=== PATIENT | female | born 1995 | race Hispanic/Latino ===

== ENCOUNTER 2024-06-04 12:46 | Emergency (ER) | payer SELFPAY ==
--- OUTSIDE RECORDS SUMMARY | 2024-06-04 12:50 | XMS REPORT | Continuity of Care Document ---
Author Name Unknown Address [address] [place] [place] [address] [facility] thconnect Address [address] [place] [place] [address] Care Team Providers Care Big Data Admin Name Role Phone Marcial Tobar Primary Care Physician [phone] MILES ARROYO Attending Clinician Unavailable Miles Arroyo DO Attending Clinician [phone] Mason Mina Attending Clinician UnavailEverardo Warner Attending Clinician UnavailPedro Jordan Attending Clinician UnavailRyan Palmer Attending Clinician UnavailShakila Guerra Admitting Clinician Unavailable Roldan Dan Admitting Clinician Unavailable Physician, No Primary or Family Admitting Clinic josephine Unavailable Payers Payer Name Policy Type Policy Number Effective Date Expirati on Date Source Allergies, Adverse Reactions, Alerts Allergy Name Allergy Type Status Severity Reaction(s) Onset Date Inactive Date Treating Clinician Comments Source No Known Allergie s DA Active U 11-26 00:00: 00 [facility] No Known Allergie s DA Active U 11-26 00:00: 00 [facility] NO KNOWN ALLERGIE S Drug Class Active [facility] Social History Social Habit Start Date Stop Date Quantity Comments Source Sexual orientation [facility] Sex Assigned At 1995 00:00:00 1995 00:00:00 [facility] Smoking Status Start Date Stop Date Source Tobacco smoking consumption unknown [facility] Medications Ordered Medication Name Filled Medication Name Start Date Stop Date Current Medication? Ordering Clinician Indication Dosage Frequency Signature (SIG) Comments Components Source metoclopram ha HCl (REGLAN) 10 mg tablet 10-09 00:00: 00 Yes [id number] 10mg Take 1 tablet by mouth every 6 (six) hours as needed (migraine) . [facility] diphenhydrA MINE (BENADRYL ALLERGY) 25 mg tablet 10-09 00:00: 00 Yes [id number] 25mg Take 1 tablet by mouth every 6 (six) hours as needed for Allergies (with reglan for migraine). [facility] naproxen sodium (ANAPROX DS) 550 mg tablet 10-09 00:00: 00 Yes [id number] 550mg Take 1 tablet by mouth in the morning and 1 tablet in the evening. Take with meals. [facility] Vital Signs Vital Name Observation Time Observation Value Comments S elvis Systolic blood pressure 2023-10-10 13:04:00 104 mm[Hg] [facility] Diastolic blood pressure 2023-10-10 13:04:00 77 mm[Hg] [facility] Heart rate 2023-10-10 13:04:00 72 /min [facility] Body temperature 2023-10-10 13:04:00 36.72 [place] [facility] Respiratory rate 2023-10-10 13:04:00 16 /min [facility] Body height 2023-10-10 13:04:00 157.5 cm [facility] Body weight 2023-10-10 13:04:00 47.174 kg [facility] BMI 2023-10-10 13:04:00 19.02 kg/m2 [facility] Oxygen saturation in Arterial blood by Pulse oximetry 2023-10-10 13:04:00 100 /min [facility] BP Systolic 2024-06-03 11:10:00 109 mm[Hg] [facility] BP Diastolic 2024-06-03 11:10:00 60 mm[Hg] [place] phen [facility] Kennedy Weight Measured 2024-06-03 11:10:00 124.20 pounds Paul Benavides Height Measured 2024-06-03 11:10:00 62.00 inches Paul Jesus Benavides Body Temperature 2024-06-03 11:10:00 98.20 degrees Paul Benavides Heart Rate 2024-06-03 11:10:00 69.00 /min Bria en F Kennedy Respiratory Rate 2024-06-03 11:10:00 16.00 /min [facility] Respiratory Rate 2023-11-30 08:59:00 18.00 /min [facility] BP Systolic 2023-11-30 08:59:00 109 mm[Hg] Step [facility] BP Diastolic 2023-11-30 08:59:00 75 mm[Hg] [place] phen [facility] Weight Measured 2023-11-30 08:59:00 113.40 pounds Paul Benavides Height Measured 2023-11-30 08:59:00 62.00 inches Paul Benavides Body Temperature 2023-11-30 08:59:00 98.10 degrees Paul Jesus Benavides Heart Rate 2023-11-30 08:59:00 64.00 /min Bria en F Kennedy Encounters Start Date/Time End Date/Time Encounter Type Admission Type Attending Rust Care Department Encounter ID Source 2021-10-02 11:26:58 Outpatient [facility] [id number] [facility] 2024-06-03 11:03:07 2024-06-03 11:03:07 Outpatient [facility] [id number] [id number] Paul Benavides 2024-06-03 00:00:00 2024-06-03 00:00:00 Outpatient Visit S[facility] [id number] Paul Benavides 2023-11-30 08:46:00 2023-11-30 08:46:00 Outpatient SFA SFA [id number] Paul Benavides 2023-11-30 00:00:00 2023-11-30 00:00:00 Outpatient Visit SFA [id number] Paul Benavides 2023-10-10 08:05:00 2023-10-10 09:21:00 Emergency X MILES ARROYO [facility] ERT [id number] [facility] 2023-10-10 08:05:00 2023-10-10 09:21:00 Emergency Miles Arroyo [facility] [id number] [facility] 2023-02-12 14:53:00 2023-02-12 18:49:00 Emergency EM Mason Mina [facility] [id number] [facility] 2023-02-04 16:41:00 2023-02-04 18:46:00 Emergency EM Sam Everardo [facility] [id number] [facility] 2021-06-24 13:05:00 2021-06-24 18:51:00 Emergency [facility] [id number] [facility] 2021-06-24 13:05:00 2021-06-24 18:51:00 Emergency [facility] [id number] [facility] 2021-03-11 07:27:00 2021-03-11 10:45:00 Emergency EM Ryan Tidwell [facility] [id number] [facility] 2021-01-03 14:55:00 2021-01-03 20:54:00 Emergency EM Sam ClydePolo [facility] [id number] [facility] 2020-10-21 07:02:00 2020-10-21 07:02:00 Outpatient [facility] [id number] [facility] Medical Results Test Description Test Time Test Comments Results Result Co mments Source NT PRO-BRAIN NATRIURETIC [id number] 16:48:00* Test Item Value Reference Range Interpretation Comme nts NT PRO-BRAIN NATRIURETIC PEPTI (test code = PROBNP) 51.4 pg/mL See_Comment N INTERPRETATION O F RESULTS Results of this test should be used in accordance with the appropriate clinical guidelines and in conjunction with clinical presentation and other diagnostic tests. Clinical guidelines recommend using natriuretic peptides in both Emergency Department (ED) and outpatient settings for diagnosis or exclusion of heart failure (HF). The performance of the VITROS NT-proBNP II test was evaluated separately in each of these settings using published age-independent and age-dependent cutoffs. EMERGENCY DEPARTMENT SETTINGS/INPATIENT: For patients presenting to the ED settings with acute or worsening dyspnea and clinical suspicion of HF, the VITROS NT-proBNP II test results should be interpreted as indicatedin the table below. ========Results(pg/mL) Age Group *Interpretation <300 All *Negative: Heart Failure Unlikely >=450 22-<50 * POSITIVE: Heart Failure >=900 50-<75 Likely >=1800 >=75 --------OUTPATIENT SETTINGS: In the outpatient settings, the optimal use of natriuretic peptides is to exclude HF. Therefore, a lower rule-out cutoff which increases sensitivity and negative predictive value is needed, as patients can present with limited, less acute HF symptoms. For ambulatory patients presenting to outpatient facilitieswith clinical suspicion of HF not previously diagnosed andat least one sign, symptom or risk factor for HF, the VITROSNT-proBNP II test results should be interpreted as indicatedin the table below: Results(pg/mL) Age Group *Interpretation <125 ALL * Negative - Heart Failure Unlikely >=125 ALL * Consider Heart Failure as well as other causes of NT-ProBNP elvation. The following interferents causes a bias at concentrationslisted in procedure. -Cefoxitin sodium -Sodium Azide [Automated message] The system which generated this result transmitted reference range: <20.0-95.3. The reference range was not used to interpret this result as normal/abnormal. [id number] 16:48:00* Test Item Value Reference Range Interpretation Comme nts TROPONIN-I (test code = TROPI) < 0.012 ng/mL 0.012-0.033 L Please be advised of the updated reference ranges for the new Chemistry instrumentation. VITROS TROPONIN I CRITERIANORMAL PATIENT W/O CIRCULATING TNI: 0.012-0.033 ng/mLAMI DIAGNOSTIC CUTOFF: >/= 0.120 ng/mL~~~~~~~~~~~~~~~~~~~~~~ ~~~~~~~~~~~~~~~~~~~~~~~~~~~ ~~~~~~~~~~The use of serial sampling and testing protocol is arecommended practice.An elevated troponin level alone is often not sufficient fordiagnosis of myocardial infarction. Troponin results obtained by different assays may vary.Evaluation of the extent of myocardial damage based onincrease of troponin would be valid only if similarmethodology is used.~~~~~~~~~~~~~~~~~~~~~~ ~~~~~~~~~~~~~~~~~~~~~~~~~~~ ~~~~~~~~~~ A POSITIVE BIAS MAY OCCUR FOR PATIENTS TAKING BIOTIN SUPPLEMENTS~~~~~~~~~~~~~~~~ ~~~~~~~~~~~~~~~~~~~~~~~~~~~ ~~~~~~~~~~~~~~~~ CBC W/AUTO [id number] 16:05:00* Test Item Value Reference Range Interpretation Comme nts WHITE BLOOD CELL (test code = WBC) 7.7 x10 3/uL 5.0-12.0 N RED BLOOD CELL (test code = RBC) 4.13 x10 6/uL 4.20-5.40 L HEMOGLOBIN (test code = HGB) 12.7 g/dL 12.0-16.0 N HEMATOCRIT (test code = HCT) 37.7 % 36.0-46.0 N MEAN CELL VOLUME (test code = MCV) 91 fL 81-99 N MEAN CELL HGB (test code = MCH) 30.8 pg 27-31 N MEAN CELL HGB CONCENTRATION (test code = MCHC) 33.7 g/dL 33-37 N RED CELL DISTRIBUTION WIDTH (test code = RDW) 12.1 % 11.5-15.5 N PLATELET COUNT (test code = PLT) 241 x10 3/uL 130-400 N MEAN PLATELET VOLUME (test c ode = MPV) 10.2 fL 9.4-16.4 N NEUTROPHIL % (test code = NT%) 55.2 % 43-65 N IMMATURE GRANULOCYTE % (test code = IG%) 0.1 % 0.0-2.0 N LYMPHOCYTE % (test code = LY%) 36.9 % 20.5-45.5 N MONOCYTE % (test code = MO%) 6.5 % 5.5-11.7 N EOSINOPHIL % (test code = EO%) 0.9 % 0.9-2.9 N BASOPHIL % (test code = BA%) 0.4 % 0.2-1.0 N NUCLEATED RBC % (test code = NRBC%) 0.0 % 0-1.0 N NEUTROPHIL # (test code = NT#) 4.24 x10 3/uL 2.2-4.8 N IMMATURE GRANULOCYTE # (test code = IG#) 0.01 x10 3/uL 0-0.03 N LYMPHOCYTE # (test code = LY#) 2.84 x10 3/uL 1.3-2.9 N MONOCYTE # (test code = MO#) 0.50 x10 3/uL 0.3-0.8 N EOSINOPHIL # (test code = EO#) 0.07 x10 3/uL 0.0-0.2 N BASOPHIL # (test code = BA#) 0.03 x10 3/uL 0.0-0.1 N - XR FOREARM 2 VIEWS [id number] 17:25:00 [facility] 1995 Sex: F FAX: Johnny Cristina [phone] [place]: [address]: PRE Name: PHILIP TOMAS [facility] : 1995 Age/S: 27/F [address] Unit #: [id number] Loc: [place] [address] Phys: Johnny Christopher Acct: [id number] Dis Date: Status: PRE ER PHONE #: [phone] Exam Date: 02/04/20231654 FAX #: [phone] Reason: pain , fall EXAMS: CPT CODE: [id number] XR [place] [address] [place] [address] EXAM: - XR FOREARM 2 VIEWS LT HISTORY: pain , fall TECHNIQUE: 2 views of the left forearm were obtained. COMPARISON: None. FINDINGS: No acute fractures or septations are seen. Left elbow joint is unremarkable. No soft tissue abnormalities or fat pad sign is evident. IMPRESSION: No acute abnormality. Dictation/location code: H 94 at 2339 Reported and signed by: Tung Sewell MD CC: Johnny Christopher Technologist: Nilson Ramirez Date/Time/By: 02/04/2023 (6093) : By: [email or web address] PAGE 1 Signed Report FAX: Johnny Cristina [phone] [place]: St: PRE Name: GENOVEVAPHILIP [facility] : 1995 Age/S: 27/F [address] [id number] Loc: [place] [address] Phys: Johnny Christopher Acct: [id number] Dis Date: Status: PRE ER PHONE #: [phone] Exam Date: 02/04/20231654 FAX #: [phone] Reason: pain , fall EXAMS: CPT CODE: [id number] XR [place] [address] [place] [address] (Continued) Orig Print D/T: S: 02/04/2023 (1729) PAGE 2 Signed Report- XR WRIST 3 + V [id number] 17:21[facility] : 1995 Sex: F FAX: Johnny Cristina [phone] [place]: St: PRE Name: PHILIP TOMAS [facility] : 1995 Age/S: 27/F [address] Unit #: [id number] Loc: [place] [address] Phys: Johnny Christopher Acct: [id number] Dis Date: Status: PRE ER PHONE #: [phone] Exam Date: 02/04/20231654 FAX #: [phone] Reason: pain , fall EXAMS: CPT CODE: [id number] XR WRIST 3 + [place] [address] EXAM: Wrist X-ray HISTORY: 27 years -old Female with pain , fall ADMITTING DIAGNOSIS: Left arm swelling and painLOCATION: [facility] COMPARISON: None TECHNIQUE: Multiple views of the left wrist including AP, lateral and bilateral oblique views were reviewed. 3 views + DISCUSSION: Joint space and alignment are maintained. There is no evident fracture. The is no dislocation, joint effusion, or significant bony variation. There is no evident foreign body. IMPRESSION: 1. Normal study left wrist. at 1721 Reported and signed by: Tyrone Ordonez MD CC: Jhonny Christopher Technologist: Nilson Yee Date/Time/By: 02/04/2023 (2028) : By: Jaimee PAGE1 Signed Report FAX: Johnny Cristina [phone] [place]: St: PRE Name: TOMASPHILIP [facility] :1995 Age/S: 27/F [address] Unit #: [id number] Loc: [place] [address] Phys: Johnny Christopher Acct: [id number] Dis Date: Status: PRE ER PHONE #: [phone] Exam Date: 02/04/2023 1655 FAX #: [phone] Reason: pain , fall EXAMS: CPT CODE: [id number] XR WRIST 3 + [place] [address](Continued) Orig Print D/T: S: 02/04/2023 (6803) PAGE 2 Signed Report- CT HEAD/BRAIN W/O [id number] 18:18:00 [facility] : 1995 Sex: F [place]: St: REG -- Name: PHILIP TOMAS [facility] [place] : 1995 Age/S: 26/F [address] Unit: [id number] Loc: [place] [address] Phys: Pedro Dangelo MD Acct: [id number] Dis Date: Status: REGER PHONE #: [phone] Exam Date: 06/24/2021 6286 FAX #: [phone] Reason: bourgeois, bl numbness, EXAMS: CPT CODE: [id number] CT HEAD/BRAIN W/O CONT [address] cervical brain and spine without contrast HISTORY: Headache, bilateral numbness. COMMENT: Multidetector noncontrast slices through the brain and cervical spine were obtained without intravenous contrast and sagittal and coronal reformatting performed. An up-to-date CT recommended radiation dose reduction technique was utilized. CT brain: There is no evidence for acute hemorrhage, mass effect, midline shift or extra-axial collection. The calvarium is intact. No air-fluid levels are seen in the sinuses. CT cervical spine: The bony cervical canal is intact with no evidence of cervical spine fracture. There is normalvertebral body alignment and vertebral body height. No disc space narrowing is present. No soft tissue swelling is present. There is a normal diameter spinal canal with no significant spinal or neuroforaminal stenosis. IMPRESSION: 1. Unremarkable noncontrast CT of the brain. 2. Normal CT of the cervical spine with no evidence of cervical spine fracture. at 1818 Reported and signed by: Nara Roque MD PAGE 1 Signed Report (CONTINUED) [place]: St: REG -- Name: PHILIP TOMAS [facility] [place] : 1995 Age/S: 26/F [address] Unit: [id number] Loc: [place] [address] Phys: Pedro Dangelo MD Acct: [id number] Dis Date: Status: REG ER PHONE#: [phone] Exam Date: 06/24/2021 8063 FAX #: [phone] Reason: bourgeois, bl numbness, EXAMS: CPT CODE: [id number] CT HEAD/BRAIN W/O CONT 27510 (Continued) CC: Technologist: Agency Technologist Nakia Dt/Tm: 06/24/2021 (181) [email or web address] Orig Print D/T: S: 06/24/2021 (1821 PAGE 2 Signed Report- CT C-SPINE W/O [id number] 18:18:00 [facility] : 1995 Sex: F [place]: [address]: REG --Name: PHILIP TOMAS [facility] : 1995 Age/S: 26/F [address] Unit: [id number] Loc: [place] [address] Phys: Pedro Dangelo MD Acct: [id number] Dis Date: Status: REG ER PHONE #: [phone] Exam Date: 06/24/2021 1755 FAX #: [phone] Reason: bourgeois, bl numbness, EXAMS: CPT CODE: [id number] CT C-SPINE W/O CONT [address] cervical brain and spine without contrast HISTORY: Headache, bilateral numbness. COMMENT: Multidetector noncontrast slices through the brain and cervical spine were obtained without intravenous contrast and sagittal and coronal reformatting performed. An up-to-date CT recommended radiation dose reduction technique was utilized. CT brain: There is no evidence for acute hemorrhage, mass effect, midline shift or extra-axial collection. The calvarium is intact. No air-fluid levels are seen in the sinuses. CT cervical spine:The bony cervical canal is intact with no evidence of cervical spine fracture. There is normal vertebral body alignment and vertebral body height. No disc space narrowing is present. No soft tissue swelling is present. There is a normal diameter spinal canal with no significant spinal or neuroforaminal stenosis. IMPRESSION: 1. Unremarkable noncontrast CT of the brain. 2. Normal CT of the cervical spine with no evidence of cervical spine fracture. Electronically Signed by Nara Roque MD on at 1818 Reported and signed by: Nara Roque MD PAGE 1 Signed Report (CONTINUED) [place]: St: REG -- Name: PHILIP TOMAS [facility] [place] : 1995 Age/S: 26/F [address] Unit: [id number] Loc: [place] [address] Phys: Pedro Dangelo MD Acct: [id number] Dis Date: Status: REG ER PHONE #: [phone] Exam Date: 06/24/2021 1755 FAX #: [phone] Reason: bourgeois, bl numbness, EXAMS: CPT CODE: [id number] CT C-SPINE W/O CONT 36470 (Continued) CC: Technologist: Agency Technologist Trnmillie Dt/Tm: 06/24/2021 (1817) [email or web address] Orig Print D/T: S: 06/24/2021 (1 PAGE 2 Signed ReportUA RFLX MICR CULT IF [id number] 16:00:00* Test Item Value Reference Range Interpretation Comme nts UA COLOR (test code = COLU) Yellow Yellow UA APPEARANCE (test code = APPU) Slightly-Cloudy Clear UA GLUCOSE DIPSTICK (test code = DGLUU) Negative MG/DL Negative UA BILIRUBIN DIPSTICK (test code = BILU) Negative Negative UA KETONE DIPSTICK (test code = KETU) 15 (1+) mg/dL Negative A UA SPECIFIC GRAVITY (test code = SGU) 1.023 <1.030 UA BLOOD DIPSTICK (test code = SRAVANI) Negative Negative UA PH DIPSTICK (test code = CONCEPCION) 6.0 5.0-8.0 UA PROTEIN DIPSTICK (test code = PROU) NEGATIVE mg/dL Negative UA UROBILINOGEN DIPSTICK (test code = URO) Negative mg/dL Negative [Automated message] The system which generated this result transmitted reference range: <=1.0. The reference range was not used to interpret this result as normal/abnormal. UA NITRITE DIPSTICK (test code = IVET) Negative Negative UA LEUKOCYTE ESTERASE DIPSTICK (test code = LEUU) TRACE Negative A UA WBC (test code = WBCUR) 0-3 /HPF See_Comment <10 WBC/HPF = PYURIA ABSENT URINE CULTURE NOT INDICATED [Automated message] The system which generated this result transmitted reference range: <4-5. The reference range was not used to interpret this result as normal/abnormal. UA RBC (test code = RBCU) 0-3 /HPF See_Comment [Automated message] The system which generated this result transmitted reference range: <4-5. The reference range was not used to interpret this result as normal/abnormal. UA BACTERIA (test code = BACU) None /HPF None-Rare UA SQUAMOUS CELLS (test code = SQU) 0-5 (RARE) /HPF See_Comment [Automated message] The system which generated this result transmitted reference range: 0-5 (RARE). The reference range was not used to interpret this result as normal/abnormal. Indication for culture: RiskForSepsis-no oth srcSOURCE OF URINE: CLEAN CATCHUR HCG [id number] 16:00:00* Test Item Value Reference Range Interpretation Comme nts UR HCG QUAL (test code = HCGQLU) NEGATIVE NEGATIVE Indication for culture: RiskForSepsis-no oth srcSOURCE OF URINE: CLEAN CATCH BASIC METABOLIC [id number] 15:45:00* Test Item Value Reference Range Interpretation Comme nts SODIUM (test code = NA) 138 mmol/L 137-145 N POTASSIUM (test code = K) 4.3 mmol/L 3.4-5.0 N CHLORIDE (test code = CL) 103 mmol/L 98-107 N CARBON DIOXIDE (test code = CO2) 22 mmol/L 22-30 N ANION GAP (test code = GAP) GLUCOSE (test code = GLU) 87 mg/dL 74-106 N BLOOD UREA NITROGEN (test code = BUN) 19 mg/dL 7-17 H GLOMERULAR FILTRATION RATE (test code = GFR) 129 >60 The estimated glomerular filtration rate is computed usingpatient race, age (>18), sex, and serum creatinine. If anyof the needed data elements are missing the Laboratory cannot compute an estimation of the glomerular filtration rate. CREATININE (test code = CREAT) 0.6 mg/dL 0.5-1.0 N CALCIUM (test code = CA) 10.1 mg/dL 8.4-10.2 N CBC W/AUTO [id number] 15:08:00* Test Item Value Reference Range Interpretation Comme nts WHITE BLOOD CELL (test code = WBC) 12.5 x10 3/uL 5.0-12.0 H RED BLOOD CELL (test code = RBC) 4.28 x10 6/uL 4.20-5.40 N HEMOGLOBIN (test code = HGB) 12.5 g/dL 12.0-16.0 N HEMATOCRIT (test code = HCT) 37.5 % 36.0-46.0 N MEAN CELL VOLUME (test code = MCV) 88 fL 81-99 N MEAN CELL HGB (test code = MCH) 29.2 pg 27-31 N MEAN CELL HGB CONCENTRATION (test code = MCHC) 33.3 g/dL 33-37 N RED CELL DISTRIBUTION WIDTH (test code = RDW) 12.5 % 11.5-15.5 N PLATELET COUNT (test code = PLT) 309 x10 3/uL 130-400 N MEAN PLATELET VOLUME (test c ode = MPV) 9.9 fL 9.4-16.4 N NEUTROPHIL % (test code = NT%) 69.2 % 43-65 H IMMATURE GRANULOCYTE % (test code = IG%) 0.5 % 0.0-2.0 N LYMPHOCYTE % (test code = LY%) 23.7 % 20.5-45.5 N MONOCYTE % (test code = MO%) 5.7 % 5.5-11.7 N EOSINOPHIL % (test code = EO%) 0.6 % 0.9-2.9 L BASOPHIL % (test code = BA%) 0.3 % 0.2-1.0 N NUCLEATED RBC % (test code = NRBC%) 0.0 % 0-1.0 N NEUTROPHIL # (test code = NT#) 8.67 x10 3/uL 2.2-4.8 H IMMATURE GRANULOCYTE # (test code = IG#) 0.06 x10 3/uL 0-0.03 H LYMPHOCYTE # (test code = LY#) 2.97 x10 3/uL 1.3-2.9 H MONOCYTE # (test code = MO#) 0.72 x10 3/uL 0.3-0.8 N EOSINOPHIL # (test code = EO#) 0.07 x10 3/uL 0.0-0.2 N BASOPHIL # (test code = BA#) 0.04 x10 3/uL 0.0-0.1 N TROPONIN I [id number] 14:49:00* Test Item Value Reference Range Interpretation Comme nts TROPONIN I RAPID (test code = TROPIRAP) 0.01 ng/mL 0.00-0.079 N ISTAT TROPONIN I CRITERIA0.00-0.08 ng/mL - Negative>0.08 ng/mL - Positive The use of serial sampling and testing protocol is arecommended practice.An elevated troponin level alone is often not sufficient fordiagnosis of myocardial infarction. Troponin results obtained by different assays may vary.Evaluation of the extent of myocardial damage based onincrease of troponin would be valid only if similarmethodology is used. - US EXTREM NON VASC [id number] 09:45:00 [facility] 1995 Sex: F FAX: Telma Santana [phone] [place]: St: REG Name: PHILIP TOMAS [facility] : 1995 Age/S: 25/F [address] Unit #: [id number] Loc: [place] [address] Phys: Telma Santana [employer] Acct: [id number] Dis Date: Status: REG ER PHONE #: [phone] Exam Date: 03/11/2021902 FAX #: [phone] Reason: UPPER L CHEST PALPABLE AREA NEAR CLAVICULAR ARE EXAMS: CPT CODE: [id number] US EXTREM NON VASC LTD 87815 EXAM: Ultrasound extremity, nonvascular INDICATION: UPPER L CHEST PALPABLE AREA NEAR CLAVICULAR AREA, ADMITTING DIAGNOSIS: Palpable area in the left supraclavicular region LOCATION: [facility] COMPARISON: None TECHNIQUE: Transcutaneous sonography in the transverse and longitudinal plane in the area concern. Multiple static images were submitted for evaluation. DISCUSSION: There is a hypoechoic nodule measure at 2.6 x 5.5 x 7.3 mm suggest presence of a small lymph nodes reside at the area of concern. No other nodule or masses. No fluid collection. No foreign body seen. IMPRESSION: 1. Small lymph node at the area concern in this left supraclavicular region. at 0945 Reported and signed by: Tyrone Ordonez MD CC:Telma Santana NP Technologist: Georgia Major RDMS Trnscrd Date/Time/By: 03/11/2021 (7645) :By: YvonneHPAbilio PAGE 1 Signed Report FAX: Telma Santana [phone] [place]: St: REG-------- [facility] [facility] 1995 Age/S: 25/F [address] Unit #: [id number] Loc: [place] [address] Phys: Telma Santana NP Acct: [id number] Dis Date: Status: REG ER PHONE #: [phone] Exam Date: 03/11/2021902 FAX #: [phone] Reason: UPPER L CHEST PALPABLE AREA NEAR CLAVICULAR ARE EXAMS: CPT CODE: [id number] US EXTREM NON VASC LTD 85464 (Continued) Orig Print D/T: S: 03/11/2021 (4833) PAGE 2 Signed Report- XR CLAVICLE COMP [id number] 09:30:00 [facility] 1995 Sex: F FAX: Telma Santana [phone] [place]: St: REG Name: PHILIP TOMAS [facility] : 1995 Age/S: 25/F [address] Unit #: [id number] Loc: [place] [address] Phys: Telma Santana [employer]AD Acct: [id number] Dis Date: Status: REG ER PHONE #: [phone] Exam Date: 03/11/2021904 FAX #: [phone] Reason: PAIN AND PALPABLE AREA EXAMS: CPT CODE: [id number] [address] EXAM: Clavicle xray INDICATION: PAIN AND PALPABLE AREA, LOCATION CODE: C3 COMPARISON: None TECHNIQUE: 2 views of the left clavicle DISCUSSION: Bony contours and osseous detail well demonstrated.Alignment is maintained. There is no evident fracture . There is no evidence of dislocation. Thereis a normal appearance of AC joint and remaining osseous structures. Subacromial height is within normal limits. Normal appearance of lung apex. IMPRESSION: 1. Normal left clavicle study. at 0930 Reported and signed by: Tyrone Ordonez MD CC: Telma Santana NP Technologist: LALA MARTINEZ; STUDENT 1ST YEAR Trnscrd Date/Time/By: 03/11/2021 (929) : By: Jaimee PAGE 1 Signed Report FAX: Telma Santana [phone] [place]: St: R EG - Name: PHILIP TOMAS [facility] : 1995 Age/S: 25/F [address] Unit #: [id number] Loc: [place] [address] Phys: Telma Santana [employer] LEAD Acct: [id number] Dis Date: Status: REG ER PHONE #:[phone] Exam Date: 03/11/2021904 FAX #: [phone] Reason: PAIN AND PALPABLE AREA EXAMS: CPT CODE: [id number] [place] [address] (Continued) Orig Print D/T: S: 03/11/2021 (09) PAGE 2 Signed Report- XR CHEST 1 [id number] 09:30:00 [facility] : 1995 Sex: F FAX: Telma Santana [phone] [place]: St: REG Name: PHILIP TOMAS [facility] : 1995 Age/S: 25/F [address] Unit #: [id number] Loc: [place] [address] Phys: Telma Santana Acct: [id number] Dis Date: Status: REG ER PHONE #: [phone] Exam Date: 03/11/2021904 FAX #: [phone] Reason: knot in upper L chest EXAMS: CPT CODE: [id number] XR CHEST 1 V 52717 EXAM:Portable chest x-ray, one view INDICATION: knot in upper L chest ADMITTING DIAGNOSIS: Left arm pain, not in the left upper chest LOCATION CODE: C3 COMPARISON: None TECHNIQUE: Single Portable AP upright view of the chest DISCUSSION: Catheter and Tubes: none Lung: The lungs are clear. No pneumothorax No Pleural effusion Mediastinum: Unremarkable Cardiac: Unremarkable Osseous structures are within normal limits. IMPRESSION: 1. Unremarkable chest x-ray. at 0930 Reported and signed by: Tyrone Ordonez MD CC: Telma Santana [employer] LEAD Technologist:LALA MARTINEZ; STUDENT 1ST YEAR Trnscrd Date/Time/By: 03/11/2021 (0930) : By: YvonneHPAbilio PAGE 1 Signed Report FAX: Telma Santana [phone] [place]: St: REG Name: PHILIP TOMAS [facility] : 1995 Age/S: 25/F [address] Unit #: [id number] Loc: [place] [address] Phys: Telma Santana [employer] LEAD Acct: [id number] Dis Date: Status: REG ER PHONE #: [phone] Exam Date: 03/11/2021 0905 FAX #: [phone] Reason: knot in upper L chest EXAMS: CPT CODE: [id number] XR CHEST 1 V 00528 (Continued) Orig Print D/T: S: 03/11/2021 (09) PAGE 2 Signed Report - CT ABD PELVIS [id number] 19:11:00 [facility] : 1995 Sex: F FAX: Telma Santana [phone] [place]: St: REG Name: PHILIP TOMAS [facility] : 1995 Age/S: 25/F [address] Unit: [id number] Loc: [place] [address] Phys: Telma Santana [employer] LEAD Acct: [id number] Dis Date: Status: REG ER PHONE #: [phone] Exam Date: 01/03/20211836 FAX#: [phone] Reason: DIFFUSE ABD PAIN WITH DIARRHEA EXAMS: CPT CODE: [id number] CT ABD PELVIS W/CONT 14295 CT abdomen and pelvis with IV contrast. Indication: Diffuse abdominal pain and diarrhea Location: R16 Comparison: None Technique: CT images of the abdomen and pelvis were obtained from the diaphragm to the pubic symphysis after the administration of intravenous contrast contrast. Coronal r eformats are provided. One or more of the following dose reduction techniques were used: Automated exposure control, adjustment of the mA and/or kV according to patient size, and/or utilization of iterative reconstruction technique. Findings: Lungs bases: Unremarkable. Liver: Unremarkable. Gallbladder: Unremarkable. Pancreas: Unremarkable. Spleen: Unremarkable. Adrenal glands: Unremarkable. Kidneys: Unremarkable. Bowel: No bowel obstruction. The appendix is not visualized possibly surgically absent. There is a fluid-filled appearance of the small large bowel with minimally increased enhancement suggestive of colitis. Peritoneum: No ascites. No free air Skeletal: No acute fracture.. Impression: There is a fluid-filled appearance of the small large bowel with minimally increased enhancementsuggestive of colitis. Additional findings as detailed above PAGE 1 Signed Report (CONTINUED) FAX: Telma Santana [phone] [place]: St: REG Name: PHILIP TOMAS [facility] : 1995 Age/S: 25/[address] Unit: [id number] Loc: [place] [address] Phys: Telma Santana [employer] LEAD Acct: [id number] Dis Date: Status: REG ER PHONE #: [phone] Exam Date: 01/03/20211836 FAX #: [phone] Reason: DIFFUSE ABD PAIN WITH DIARRHEA EXAMS: CPT CODE: [id number] CT ABD PELVIS W/CONT 78806 (Continued) at 1911 Reported and signed by: Tonia Frias MD CC: Telma Santana [employer] LEAD Technologist: Abi Medellin; Domi Michael Trnscrd Dt/Tm: 01/03/2021 (1910) [id number] Orig Print D/T: S: 01/03/2021 (4 PAGE 2 Signed ReportCOMPREHENSIVE METABOLIC [id number] 17:28:00* Test Item Value Reference Range Interpretation Comme nts SODIUM (test code = NA) 136 mmol/L 137-145 L POTASSIUM (test code = K) 3.7 mmol/L 3.4-5.0 N CHLORIDE (test code = CL) 102 mmol/L 98-107 N CARBON DIOXIDE (test code = CO2) 22 mmol/L 22-30 N GLUCOSE (test code = GLU) 100 mg/dL 74-106 N BLOOD UREA NITROGEN (test code = BUN) 15 mg/dL 7-17 N GLOMERULAR FILTRATION RATE (test code = GFR) 131 >60 The estimated glomerular filtration rate is computed usingpatient race, age (>18), sex, and serum creatinine. If anyof the needed data elements are missing the Laboratory cannot compute an estimation of the glomerular filtration rate. CREATININE (test code = CREAT) 0.6 mg/dL 0.5-1.0 N TOTAL PROTEIN (test code = PROT) 8.7 g/dL 6.3-8.2 H "A positive bias may occur for patients taking Eltrombopag(a bone marrow stimulant used to treat thrombocytopenia andaplastic anemia)." ALBUMIN (test code = ALB) 4.9 g/dL 3.5-5.0 N CALCIUM (test code = CA) 9.2 mg/dL 8.4-10.2 N BILIRUBIN TOTAL (test code = BILT) 0.5 mg/dL 0.2-1.3 N "A positive b ias may occur for patients taking Eltrombopag(a bone marrow stimulant used to treat thrombocytopenia andaplastic anemia)." BILIRUBIN CONJUGATED (test code = BILCON) 0 mg/dL 0-0.3 N "A positive bias may occur for patients taking Eltrombopag(a bone marrow stimulant used to treat thrombocytopenia andaplastic anemia)." CONJUGATE D BILIRUBIN IS THE REPLACEMENT ASSAY FOR DIRECTBILIRUBIN. BILIRUBIN UNCONJUGATED (test code = BILUNC) 0.3 mg/dL 0-1.1 N SGOT/AST (test code = AST) 26 U/L 15-46 N SGPT/ALT (test code = ALT) 27 U/L 0-34 N ALKALINE PHOSPHATASE (test code = ALKP) 99 U/L 38-126 N [id number] 17:28:00* Test Item Value Reference Range Interpretation Comme nts LIPASE (test code = LIP) 77 U/L 23-300 N CBC W/AUTO [id number] 17:16:00* Test Item Value Reference Range Interpretation Comme nts WHITE BLOOD CELL (test code = WBC) 19.7 x10 3/uL 5.0-12.0 H RED BLOOD CELL (test code = RBC) 4.90 x10 6/uL 4.20-5.40 N HEMOGLOBIN (test code = HGB) 14.3 g/dL 12.0-16.0 N HEMATOCRIT (test code = HCT) 43.5 % 36.0-46.0 N MEAN CELL VOLUME (test code = MCV) 89 fL 81-99 N MEAN CELL HGB (test code = MCH) 29.2 pg 27-31 N MEAN CELL HGB CONCENTRATION (test code = MCHC) 32.9 g/dL 33-37 L RED CELL DISTRIBUTION WIDTH (test code = RDW) 12.6 % 11.5-15.5 N PLATELET COUNT (test code = PLT) 301 x10 3/uL 130-400 N MEAN PLATELET VOLUME (test code = MPV) 10.1 fL 9.4-16.4 N NEUTROPHIL % (test code = NT%) 92.2 % 43-65 H IMMATURE GRANULOCYTE % (test code = IG%) 0.6 % 0.0-2.0 N LYMPHOCYTE % (test code = LY%) 4.5 % 20.5-45.5 L MONOCYTE % (test code = MO%) 2.3 % 5.5-11.7 L EOSINOPHIL % (test code = EO%) 0.2 % 0.9-2.9 L BASOPHIL % (test code = BA%) 0.2 % 0.2-1.0 N NUCLEATED RBC % (test code = NRBC%) 0.0 % 0-1.0 N NEUTROPHIL # (test code = NT#) 18.17 x10 3/uL 2.2-4.8 H IMMATURE GRANULOCYTE # (test code = IG#) 0.11 x10 3/uL 0-0.03 H LYMPHOCYTE # (test code = LY#) 0.88 x10 3/uL 1.3-2.9 L MONOCYTE # (test code = MO#) 0.45 x10 3/uL 0.3-0.8 N EOSINOPHIL # (test code = EO#) 0.04 x10 3/uL 0.0-0.2 N BASOPHIL # (test code = BA#) 0.03 x10 3/uL 0.0-0.1 N UA RFLX MICR CULT IF [id number] 16:51:00* Test Item Value Reference Range Interpretation Comme nts UA COLOR (test code = COLU) Yellow Yellow UA APPEARANCE (test code = APPU) Slightly-Cloudy Clear UA GLUCOSE DIPSTICK (test code = DGLUU) Negative Negative UA BILIRUBIN DIPSTICK (test code = BILU) Negative Negative UA KETONE DIPSTICK (test code = KETU) 15 (1+) mg/dL Negative A UA SPECIFIC GRAVITY (test code = SGU) 1.033 <1.030 A UA BLOOD DIPSTICK (test code = SRAVANI) Negative Negative UA PH DIPSTICK (test code = CONCEPCION) 5.0 5.0-8.0 UA PROTEIN DIPSTICK (test code = PROU) 30 (1+) mg/dL Negative A UA UROBILINOGEN DIPSTICK (test code = URO) 2.0 mg/dL Negative A UA NITRITE DIPSTICK (test code = IVET) Negative Negative UA LEUKOCYTE ESTERASE DIPSTICK (test code = LEUU) TRACE Negative A UA WBC (test code = WBCUR) 6-10 /HPF See_Comment A <10 WBC/HPF = PYURIA ABSENT URINE CULTURE NOT INDICATED [Automated message] The system which generated this result transmitted reference range: <4-5. The reference range was not used to interpret this result as normal/abnormal. UA RBC (test code = RBCU) 0-3 /HPF See_Comment [Automated message] The system which generated this result transmitted reference range: <4-5. The reference range was not used to interpret this result as normal/abnormal. UA BACTERIA (test code = BACU) None /HPF None-Rare UA SQUAMOUS CELLS (test code = SQU) 0-5 (RARE) /HPF See_Comment [Automated message] The system which generated this result transmitted reference range: 0-5 (RARE). The reference range was not used to interpret this result as normal/abnormal. UA MUCUS (test code = MUCU) 2+ /LPF See_Comment A [Automated message] The system which generated this result transmitted reference range: <Rare. The reference range was not used to interpret this result as normal/abnormal. Indication for culture: Dysuria/FrequencySOURCE OF URINE: VOIDEDUR HCG QUAL 2021-01-03 16:51:00* Test Item Value Reference Range Interpretation Comme nts UR HCG QUAL (test code = HCGQLU) NEGATIVE NEGATIVE Indication for culture: Dysuria/FrequencySOURCE OF URINE: VOIDEDUA RFLX MICR CULT IF [id number] 16:46:00* Test Item Value Reference Range Interpretation Comme nts UA COLOR (test code = COLU) YELLOW UA APPEARANCE (test code = APPU) CLEAR UA GLUCOSE DIPSTICK (test code = DGLUU) MG/DL NEGATIVE UA BILIRUBIN DIPSTICK (test code = BILU) NEGATIVE UA KETONE DIPSTICK (test code = KETU) MG/DL NEGATIVE UA SPECIFIC GRAVITY (test code = SGU) 1.000-1.030 UA BLOOD DIPSTICK (test code = SRAVANI) NEGATIVE UA PH DIPSTICK (test code = CONCEPCION) 4.5-8.5 UA PROTEIN DIPSTICK (test code = PROU) MG/DL NEGATIVE UA UROBILINOGEN DIPSTICK (test code = URO) EU/dL See_Comment [Automated mes holly] The system which generated this result transmitted reference range: <=1.0. The reference range was not used to interpret this result as normal/abnormal. UA NITRITE DIPSTICK (test code = IVET) NEGATIVE UA LEUKOCYTE ESTERASE DIPSTICK (test code = LEUU) NEGATIVE UA WBC (test code = WBCUR) /HPF 0-3 UA RBC (test code = RBCU) /HPF 0-3 UA BACTERIA (test code = BACU) /HPF NEGATIVE Indication for culture: Dysuria/FrequencySOURCE OF URINE: VOIDEDUR HCG QUAL 2021-01-03 16:46:00* Test Item Value Reference Range Interpretation Comme nts UR HCG QUAL (test code = HCGQLU) NEGATIVE NEGATIVE Indication for culture: Dysuria/FrequencySOURCE OF URINE: VOIDED- CT HEAD/BRAIN W/O [id number] 23:55:00FAX: Billie Fitch [phone] [place]: St: REG FAX: Pedro Dangelo MD [phone] ---- Name: PHILIP TOMAS [facility] : 1995 Age/S: 23/F [address] Unit: [id number] Loc: [place] [address] Phys: Billie Danielson NP Acct: [id number] Dis Date: Status: REG ER PHONE #: [phone] Exam Date: 09/18/2018 2345 FAX #: [phone] Reason: left arm numbness EXAMS: CPT CODE: [id number] CT HEAD/BRAIN W/O CONT 45125 CT HEAD WITHOUT CONTRAST. HISTORY: left arm numbness COMPARISON: No comparison is available. TECHNIQUE: Axial CT images of the head were obtained with coronal and/or sagittal reformatted views. Automated exposure control, iterative reconstruction technique, and/or adju stment of mA and/or kV according to patient's size was utilized for radiation dose reduction. IV CONTRAST: None. Location: U19. FINDINGS: No intracranial abnormalities such as hemorrhage, mass, masseffect, hydrocephalus, midline shift, extra-axial fluid collection or secondary signs of an acute infarct are noted. The calvarium and skull base are intact. The visualized paranasal sinus and mastoid air cells are clear. IMPRESSION: No evidence of acute intracranial abnormality. ElectronicallySigned by Robbie Lindsey MD on 09/18/2018 at 2965 Reported and signed by: Robbie Lindsey MD CC: Billie Danielson NP; Pedro Dangelo MD Technologist: KILO CORTEZ Alleigh Trnscrd Dt/Tm: 09/18/2018 (7737) [email or web address] Orig Print D/T: S: 09/18/2018 (5545 PAGE 1 Signed Report Notes Date/Time Note Provider Source Paul LeeBrandy [facility]2024-05-23 00:00:00 Paul LeeBrandy [facility]2024-04-02 08:40:51 Pt given printed and verbal discharge instructions regarding Tension headache, encouraged hydration, 3 Prescriptions provided Discussed ibuprofen and to take with food to avoid GI distress. Pt verbalized understanding of instructions, pt awake alert oriented, resp reg unlabored, skin w/d, color appropriate for race, moves all ext well,pt encouraged to follow up with pcp Advised to seek medical attention for new/prolonged/worsening of symptoms, No adverse reaction to meds given in ER noted upon discharge Awake, alert oriented, resp reg unlabored, skin w/d, pt leaving amb with steady gait, in no apparent distress, Nela Arteaga [id number] 08:04:10 Intermittent headache for over a month. No headache right now. [id number] 17:43:00 [facility] ([facility] EMERGENCY PROVIDER REPORT REPORT#:[id number] REPORT STATUS: Signed DATE:02/12/23 TIME: 1742 PATIENT: PHILIP TOMAS UNIT #: [id number] ROOM/BED: AGE: 27 SEX: F PCP PHYS: Roldan Dan MD SERVICE AUTHOR: Ld Palomino APRNNP * ALL edits or amendments must be made on the electronic/computer document * Ld Palomino 02/12/23 1743: HPI-Headache General Confirmed Patient Yes Patient Type Existing patient Initial Greet Date/Time 02/12/23 1454 Assumed Care at Time 1730 Date 02/12/23 PCP None Presentation Chief Complaint Headache Hx Obtained From Patient Sudden in Onset? Yes Onset Occurred Today Symptom Duration Since onset Progression since Onset Constant Context of Onset Spontaneous Location Generalized Quality Painful Radiation No: Does not radiate. Pain/Sev: Onset Moderate Pain/Sev: Current Moderate Exacerbated by Nothing Relieved by Nothing Context Recent Healthcare No recent doctor visit, No recent hospitalization /Sexual Hx Last Menstrual Period 02/12/23 Free Text HPI Notes Free Text HPI Notes Patient is a 27-year-old female who presents emergency department complaining of a generalized headache onset at 11 AM this morning. Patient reports associated symptoms of blurred vision and nausea. Patient reports he was outside when the symptoms started causing him to have a near syncopal episode. Patient reports he was awake during this episode and denies LOC. Denies history of similar episodes. Patient denies history of migraine headaches. Patient denies thunderclap. Patient denies any other concerns or complaints at this time. Risk-Headache Risk Stratification )( Subarachnoid Hemorrhage Risk factors reviewed, No risk factors )( IC Mass Lesion Risk factors reviewed, No risk factors Review of Systems Free Text ROS Notes Free Text ROS Notes ROS Statements All systems rev neg except as marked. Focused Review of Systems Constitutional Denies: Chills, Fever, Fatigue, Weakness - generalized. Eyes Denies: Discharge bilat, Eye pain bilat, Redness bilat, Photophobia. Reports: Blurred Vision bilat. Ears/Nose/Throat Denies: Earache bilat, Nasal congestion, Sore throat, Phonophobia, Lacrimation. Respiratory Denies: Cough, Shortness of breath, Wheezing. Cardiovascular Denies: Chest pain, Edema, Palpitations. GI Denies: Abdominal pain, Diarrhea, Vomiting. Reports: Nausea. Musculoskeletal Denies: Back pain, Myalgia, Neck pain. Skin Denies: Abrasion, Abscess, Rash. Female Denies: Dysuria, Flank pain, Urinary Frequency, Urinary Urgency, . Neurologic Denies: Dizziness, Lightheadedness. Reports: Headache, Near syncope. Past Medical History - Adult Stated Complaint BOURGEOIS, NAUSEA, BLURRY VISION; STARTED WHILE OUT Allergies Coded Allergies: No Known Allergies (11/26/17) Home Medications Active Scripts metroNIDAZOLE (FLAGYL) 500 MG PO Q12H metroNIDAZOLE (FLAGYL) 500 MG PO Q12H #20 TABS Prov: 01/03/21 CIPROFLOXACIN 500 MG PO BID CIPROFLOXACIN 500 MG PO BID #20 TABS Prov: 01/03/21 CEPHALEXIN (KEFLEX) 500 MG PO Q8HR CEPHALEXIN (KEFLEX) 500 MG PO Q8HR #21 CAPS Prov: 03/11/21 HYDROcodone/APAP (HYDROcodone/APAP 7.5/325) 1 TAB PO Q6H PRN PRN PAIN HYDROcodone/APAP (HYDROcodone/APAP 7.5/325) 1 TAB PO Q6H PRN PRN PAIN #30 TABS Prov: 01/30/18 Review of Nursing Notes Rapid assess notes rev Additional Medical History Anemia Additional Surgical History None Alcohol Use Denies EtOH use Drug Use Denies recreational drugs Smoking status for patients 13 years old or older: Never Smoker Other Social History Local resident, Good social support Ambulatory Status Independent Physical Exam Vital Signs Review of Vital Signs Reviewed Focused PE Eyes Eyes PERRL, EOMI, No nystagmus, No photophobia, Conjunctiva NL Free Text PE Notes Free Text PE Notes General/Const General/Const Awake, Alert, No acute distress, Cooperative, Not toxic appearing MS Neck Neck Supple, Full range of motion, No swelling, Non-tender, No midline vertebral tend Resp/Chest Respiratory/Chest Breath sounds NL, Breath sounds = bilat, No respiratory distress, No rales, No rhonchi, No wheezing, No retractions Cardiovascular Cardiovascular Heart rate NL, Heart sounds NL, No murmurs, Pulses = bilaterally Abdomen/GI Abdomen/GI Soft, Non-tender, No guarding, No rebound, BS normoactive, No distention MS Lower Extrem Lower Ext/Pelvis/MS Inspection NL, Full range of motion, No swelling Skin Skin Color NL, No rash, Warm, Dry, Intact, Turgor NL Neurologic Neurologic Oriented X3, Speech NL, No motor deficits, No sensory deficits MS Head Head Normocephalic MS Upper Extrem Upper Extremity/MS Inspection NL, Full range of motion, No swelling Interpretation Diagnostics Lab Results Interpretation Results Laboratory Tests 02/12/23 1533: [Embedded Image Not Available] Laboratory Tests: 02/12 1533 Chemistry Sodium (137 - 145 mmol/L) 135 L Potassium (3.4 - 5.0 mmol/L) 3.7 Chloride (98 - 107 mmol/L) 101 Carbon Dioxide (22 - 30 mmol/L) 24 Anion Gap 15 BUN (7 - 17 mg/dL) 14 Creatinine (0.5 - 1.0 mg/dL) 0.6 Glomerular Filtr Rate (mL/min) 127 Glucose (74 - 106 mg/dL) 112 H Calcium (8.4 - 10.2 mg/dL) 9.4 Troponin I (0.012 - 0.033 ng/mL) < 0.012 L NT-Pro-B Natriuret Pep (<20.0 - 95.3 pg/mL) 51.4 Specimen Hemolysis (0 - 100 Index/DL) 29 Hematology WBC (5.0 - 12.0 x10 3/uL) 7.7 RBC (4.20 - 5.40 x10 6/uL) 4.13 L Hgb (12.0 - 16.0 g/dL) 12.7 Hct (36.0 - 46.0 %) 37.7 MCV (81 - 99 fL) 91 MCH (27 - 31 pg) 30.8 MCHC (33 - 37 g/dL) 33.7 RDW (11.5 - 15.5 %) 12.1 Plt Count (130 - 400 x10 3/uL) 241 MPV (9.4 - 16.4 fL) 10.2 Neut % (Auto) (43 - 65 %) 55.2 Lymph % (Auto) (20.5 - 45.5 %) 36.9 King % (Auto) (5.5 - 11.7 %) 6.5 Eos % (Auto) (0.9 - 2.9 %) 0.9 Baso % (Auto) (0.2 - 1.0 %) 0.4 Neut # (Auto) (2.2 - 4.8 x10 3/uL) 4.24 Lymph # (Auto) (1.3 - 2.9 x10 3/uL) 2.84 King # (Auto) (0.3 - 0.8 x10 3/uL) 0.50 Eos # (Auto) (0.0 - 0.2 x10 3/uL) 0.07 Baso # (Auto) (0.0 - 0.1 x10 3/uL) 0.03 Immature Gran % (0.0 - 2.0 %) 0.1 Nucleated RBC % (0 - 1.0 %) 0.0 Lab Statement Laboratory studies reviewed and considered in the medical decision-making. Point of Care Testing Pulse Oximetry 1 Pulse Ox % 99 On: Room air Interpretation Interpreted by me, Pulse oximetry normal Time 1457 Pulse Oximetry 2 Pulse Ox % 99 On: Room air Interpretation Interpreted by me, Pulse oximetry normal Time 1501 Pulse Oximetry 3 Pulse Ox % 100 On: Room air Interpretation Interpreted by me, Pulse oximetry normal Time 1749 ECG #1 Interpretation ECG Documented in MUSE Yes Date 02/12/23 Time 1538 Interpreted by and reviewed by me, Interpreted by ED attending NL ECG Interpretation Normal rate, Normal sinus rhythm, No acute ischemic changes, No STEMI Re-Evaluation MDM )( Re-Evaluation/Progress #1 Text/Dict Note Plan to discharge discussed with pt. Discussed diagnosis, results, and treatment plan with pt. Pt understands and agrees with the plan. Written educational handouts/material appropriate to the pt's problem provided to the pt. All questions and concerns were addressed. Pt advised to follow-up with PCP in 3 days. Stressed importance of follow-up. ER return precautions discussed with pt. Pt advised to return to ED for any new, worsening, persistent, or concerning symptoms. Pt verbalized understanding. Time of Re-Eval 1744 )( Re-Eval Status Improved Eval Following Treatment Pt. feels better, Tolerate liquids, no N/V Exam Post Tx - General Active, Alert, Appears non-toxic, Vital signs stable, Hydration normal Plan Post Re-Eval Plan discharge ED Course Medication(s) Ordered Medication(s) Ordered: Electrolytic, Caloric, And Rand Sig/Aleksandar Start time Last Medication Dose Route Stop Time Status Admin Sodium Chloride 1,000 ML X1ED STA 02/12 1506 DC 02/12 IV 02/12 1605 1533 Free Text MDM Notes Free Text MDM Notes 27-year-old female who presents emergency department complaining of a generalized headache onset at 11 AM this morning. Patient reports associated symptoms of blurred vision and nausea. Patient reports he was outside when the symptoms started causing him to have a near syncopal episode. Patient reports he was awake during this episode and denies LOC. Denies history of similar episodes. Patient denies history of migraine headaches. Patient denies thunderclap. Patient denies any other concerns or complaints at this time. Vital Signs Stable. During the management of the patient broad differentials were considered including: Cerebellar ischemia, Closed head injury, [employer] IN[employer] tumor, Cerebrovascular accident, Dental infection, Encephalitis, Fever-induced, Glaucoma, Headache, cluster, Headache, migraine, Headache, muscular contra, Headache, tension, Hemorrhage, cerebellar, Hemorrhage, epidural, Hemorrhage, intracerebral, Hemorrhage, subarachnoid, Hemorrhage, subdural, Meningitis, Pseudotumor cerebri, Sinusitis, Temporal arteritis, TMJ syndrome, Trigeminal neuralgia, Vertebrobas insufficiency History obtained from patient. My initial management of this patient included: EKG, CBC, BMP, troponin, BNP, IV fluids NS. EKG Interpretation: Date 02/12/23, Time 1538, Interpreted by and reviewed by me, Interpreted by ED attending, ALEC ECG Interpretation Normal rate, Normal sinus rhythm, No acute ischemic changes, No STEMI. Lab Interpretation: Independently reviewed and interpreted by me: Pulse oximetry waveform independently reviewed and interpreted by me: 99%, 99%, 100% on Room air with normal waveform, normal pulse oximetry. This is an acute problem. I would consider the severity of this problem as: Mild. Social determinants of health that impacted or limited the diagnosis/treatment: No primary care physician support, lack of health insurance, and lack of prescription insurance. Reassessment: The patient presented to the emergency department with a headache, nausea, blurred vision, and near syncopal episode. The patient is now resting comfortably and feels better, is alert, talkative, interactive and in no distress. The patient appears well and is able to tolerate PO fluids. The repeat examination is unremarkable and benign. The patient is neurologically intact, has a normal mental status, and is ambulatory in the ED. The history, exam, diagnostic testing (if any) and the patient's current condition do not suggest meningitis, stroke, sepsis, subarachnoid hemorrhage, intracranial bleeding, IL, encephalitis, temporal arteritis or other significant pathology to warrant further testing, continued ED treatment, admission, neurological consultation, or other specialist evaluation at this point. The vital signs have been stable. Decision regarding discharge was discussed with patient along with the risks, benefits, and alternative options. Patient verbalized understanding and is agreeable to the plan to discharge. The patient's condition is stable and appropriate for discharge. The patient will pursue further outpatient evaluation with the primary care physician or other designated or consulting physician as indicated in the discharge instructions. Patient Discharge Departure Vital Signs/Condition Condition Improved Clinical Impression Clinical Impression Primary Impression: Headache Secondary Impressions: Dehydration, Heat exposure Time of Impression 1745 Disposition Decision Discharge )( Discharged to Home Yes )( Time 1745 )( Date 02/12/23 Discharge/Care Plan Counseled Regarding Diagnosis, Lab results, Need for follow-up, When to return to ED Patient Instructions ED Dehydration (Adult), ED Headache Unspecified, ED Heat Exhaustion Additional Instructions Thank you for coming to [facility] today. The care we provided was on an emergency basis. It is not a substitute for regularly scheduled appointments with your primary care provider (PCP). It essential to have a PCP who can help manage chronic medical conditions and arrange for necessary screening tests, etc. Please call your primary care provider within the next 24 hours to schedule a follow-up appointment in the next 3 days. Use ibuprofen (Advil, Motrin) 400 mg every 6 hours and/or acetaminophen (Tylenol ) 500 mg every 4 hours as needed for pain and/or fever. Return to the emergency department for worsening symptoms or any other concerns. Departure Forms FREE OR LOW COST CLINICS [facility] PCP LIST WORK/SCHOOL EXCUSE VARIABLE Discharge Note I have spoken with the patient and/or caregivers. I have explained the patient's condition, diagnoses and treatment plan based on the information available to me at this time. I have answered the patient's and/or caregiver's questions and addressed any concerns. The patient and/or caregivers have as good an understanding of the patient's diagnosis, condition and treatment plan as can be expected at this point. The vital signs have been stable. The patient's condition is stable and appropriate for discharge from the emergency department. The patient will pursue further outpatient evaluation with the primary care physician or other designated or consulting physician as outlined in the discharge instructions. The patient and/or caregivers are agreeable to this plan of care and follow-up instructions have been explained in detail. The patient and/or caregivers have received these instructions in written format and have expressed an understanding of the discharge instructions. The patient and/or caregivers are aware that any significant change in condition or worsening of symptoms should prompt an immediate return to this or the closest emergency department or a call to 911. Free Text Depart Notes Free Text Depart Notes Notice: Parts of this note were created using Boedo speech recognition dictation software. All attempts were made to correct any errors at the time of dictation, however there may be some errors present in the pig breeder that were inadvertently overlooked during the dictation. Mason Mina 02/12/23 183: Physical Exam Vital Signs Vital Signs First Documented: Result Date Time Pulse Ox 99 02/12 1457 B/P 64/55 02/12 1457 B/P Mean 58.0 02/127 Temp 36.8 02/12 1457 Pulse 74 02/12 1457 Resp 16 02/12 1457 Last Documented: Result Date Time Pulse Ox 100 02/12 1749 B/P 115/70 02/12 174 B/P Mean 84.9 02/12 1749 Temp 36.8 02/12 174 Pulse 61 / 1749 Resp 16 02/12 174 Patient Discharge Departure Vital Signs/Condition Vital Signs First Documented: Result Date Time Pulse Ox 99 02/12 1457 B/P 64/55 02/12 145 B/P Mean 58.0 02/12 1457 Temp 36.8 02/12 1457 Pulse 74 02/12 1457 Resp 16 02/12 1457 Last Documented: Result Date Time Pulse Ox 100 02/12 1749 B/P 115/70 02/12 1749 B/P Mean 84.9 02/12 174 Temp 36.8 02/12 174 Pulse 61 02/12 174 Resp 16 02/12 174 All vital signs available at the time of this entry have been reviewed. Supervising Physician Note MidLv Saw Pt Alone I have reviewed the PA/MARKETING ANALYTICS LEAD's note and plan of care. I was available for consultation as needed at all times during the patient's visit in the emergency department. I agree with the clinical impression, plan and disposition. Tong Lima 02/28/23 0125: Re-Evaluation MDM Differential Diagnosis )( Differential Diagnosis . Patient Discharge Departure Supervising Physician Note MidLv Saw Pt Alone I have reviewed the PA/MARKETING ANALYTICS LEAD's note and plan of care. I was available for consultation as needed at all times during the patient's visit in the emergency department. I agree with the clinical impression, plan and disposition. at 2014 at 0125 at 0733 RPT #:[id number] END OF [id number] 15:38:[id number] [facility] [address] [address] [place] [address] PATIENT NAME: PHILIP TOMAS ADMIT DATE: 02/12/23 ACCOUNT NO: [id number] ROOM NO: AGE: 27 REPORT TYPE: ELECTROCARDIOGRAM SEX: F ADMITTING PHYSICIAN: ATTENDING PHYSICIAN: Order: [id number] Test Reason : Test Date/Time Stamp: MonFeb 12 2023 15:38:15 Blood Pressure : / mmHG Vent. Rate : 062 BPM Atrial Rate : 062 BPM P-R Int : 114 ms QRS Dur : 080 ms QT Int : 414 ms P-R-T Axes : 010 047 037 degrees QTc Int : 420 ms Normal sinus rhythm Normal ECG Confirmed by BREA LWOERY ([id number]) on 02/14/2023 2:27:31 PM Referred By: Self Referred Confirmed by:BREA LOWERY at 1427 PATIENT NAME: PHILIP TOMAS 15:12:00 [facility] EMERGENCY PROVIDER REPORT REPORT#:[id number] REPORT STATUS: Signed DATE:02/12/23 TIME: 1511 PATIENT: PHILPI TOMAS UNIT #: [id number] ROOM/BED: AGE: 27 SEX: F PCP PHYS: Roldan Dan MD SERVICE AUTHOR: Naldo Wilson * ALL edits or amendments must be made on the electronic/computer document * Naldo Wilson 02/12/23 1512: Provider in Triage - Adult Provider in Triage Initial Greet Date/Time 02/12/23 1454 Greet Note I have greeted and performed a focused rapid initial assessment of this patient. A comprehensive ED assessment and evaluation of the patient, analysis of all test results, and completion of the medical decision-making process will be conducted by additional ED providers. Free Text PIT Notes Free Text PIT Notes Patient is a 27-year-old female that is here today due to complaint of blurry vision, syncopal episode, headache that started about 11 AM. Patient verbalized that he has a car at home. Patient verbalized that she got in the shower however she does not feel any better. NKDA PMH anemia, she does not with PCP LMP today Patient denies hitting head or losing consciousness PMH-Provider in Triage Stated Complaint BOURGEOIS, NAUSEA, BLURRY VISION; STARTED WHILE OUTSIDE Allergies Coded Allergies: No Known Allergies (11/26/17) Home Medications Active Scripts metroNIDAZOLE (FLAGYL) 500 MG PO Q12H metroNIDAZOLE (FLAGYL) 500 MG PO Q12H #20 TABS Prov: 01/03/21 CIPROFLOXACIN 500 MG PO BID CIPROFLOXACIN 500 MG PO BID #20 TABS Prov: 01/03/21 CEPHALEXIN (KEFLEX) 500 MG PO Q8HR CEPHALEXIN (KEFLEX) 500 MG PO Q8HR #21 CAPS Prov: 03/11/21 HYDROcodone/APAP (HYDROcodone/APAP 7.5/325) 1 TAB PO Q6H PRN PRN PAIN HYDROcodone/APAP (HYDROcodone/APAP 7.5/325) 1 TAB PO Q6H PRN PRN PAIN #30 TABS Prov: 01/30/18 at 1514 at 1839 at 0125 RPT #:[id number] END OF [id number] 18:02:00 [facility] EMERGENCY PROVIDER REPORT REPORT#:[id number] REPORT STATUS: Signed DATE:02/04/23 TIME: 1801 PATIENT: PHILIP TOMAS UNIT #: [id number] ROOM/BED: AGE: 27 SEX: F PCP PHYS: Danis Durán MD SERVICE AUTHOR: Georgia Costa * ALL edits or amendments must be made on the electronic/computer document * Georgia Costa 02/04/231801: HPI-Wrist Prob/Inj General Confirmed Patient Yes Patient Type New patient Initial Greet Date/Time 02/04/23 1642 Presentation Chief Complaint Wrist injury L, Wrist pain L Hx Obtained From Patient Free Text HPI Notes Free Text HPI Notes 27-year-old female presents to the ED with reports of left wrist pain after a slip [place] rock [place] 4 [place] 5 [place]. Patient reports she first fell on her buttocks and use the hand to catch her the rest of the way. Reports she took ibuprofen at 2 PM. Denies any fevers, swelling, lacerations, drainage. Reports she is right-handed. Review of Systems ROS Statements All systems rev neg except as marked. Free Text ROS Notes Free Text ROS Notes Per HPI Past Medical History - Adult Stated Complaint L ARM SWELLING AND PAIN. SHE FELL TODAY Allergies Coded Allergies: No Known Allergies (11/26/17) Home Medications Active Scripts metroNIDAZOLE (FLAGYL) 500 MG PO Q12H metroNIDAZOLE (FLAGYL) 500 MG PO Q12H #20 TABS Prov: 01/03/21 CIPROFLOXACIN 500 MG PO BID CIPROFLOXACIN 500 MG PO BID #20 TABS Prov: 01/03/21 CEPHALEXIN (KEFLEX) 500 MG PO Q8HR CEPHALEXIN (KEFLEX) 500 MG PO Q8HR #21 CAPS Prov: 03/11/21 HYDROcodone/APAP (HYDROcodone/APAP 7.5/325) 1 TAB PO Q6H PRN PRN PAIN HYDROcodone/APAP (HYDROcodone/APAP 7.5/325) 1 TAB PO Q6H PRN PRN PAIN #30 TABS Prov: 01/30/18 Review of Nursing Notes Rev avail, and agree, Rapid assess notes rev Additional Medical History None Additional Surgical History None Alcohol Use Denies EtOH use Drug Use Denies recreational drugs Smoking status for patients 13 years old or older: Never Smoker Physical Exam Vital Signs Vital Signs First Documented: Result Date Time Pulse Ox 99 02/04 1649 B/P 115/71 02/04 1649 B/P Mean 85.8 02/04 1649 Temp 36.7 02/04 1649 Pulse 69 02/04 1649 Resp 16 02/04 1649 Last Documented: Result Date Time Pulse Ox 99 02/04 1649 B/P 115/71 02/04 1649 B/P Mean 85.8 02/04 1649 Temp 36.7 02/04 1649 Pulse 69 02/04 1649 Resp 16 02/04 1649 Review of Vital Signs Reviewed Focused PE General/Const General/Const Awake, Alert, No acute distress, Cooperative MS Wrist/Hand Wrist/Hand Inspection NL Left Wrist Tenderness present, Tender snuffbox. Negative: ROM reduced. Left Hand Negative: ROM reduced. Skin Skin Atraumatic, Color NL, No rash, Warm, Dry, Intact, Turgor NL, No swelling Neurologic Neurologic Oriented X3, Speech NL, Gait NL Interpretation Diagnostics Lab Results Interpretation Results Recent Impressions: RADIOLOGY - XR WRIST 3 + V LT 02/05 1652 Report Impression - Status: SIGNED Entered: 02/04/2023 3780 IMPRESSION: 1. Normal study left wrist. Impression By: t.Tyrone Melendez MD RADIOLOGY - XR FOREARM 2 VIEWS LT 02/04 1652 Report Impression - Status: SIGNED Entered: 02/04/2023 1729 IMPRESSION: No acute abnormality. Dictation/location code: H 94 Impression By: [email or web address] Tung Anderson MD Imaging Statement Radiographic studies reviewed and considered in the medical decision-making. Point of Care Testing Pulse Oximetry Pulse Ox % 99 On: Room air Interpretation Interpreted by me, Pulse oximetry normal Time 1649 Re-Evaluation MDM Re-Evaluation/Progress Re-Evaluation/Progress Text/Dict Note Pt is a 27-year-old female presents to the ED with reports of left wrist pain after a slip and fall on a rock approximately 4 to 5 [place] A broad differential was considered and included below. Patient has no comorbidities that would impact treatment History obtained from the patient. Review of studies were performed by me including: -X-ray of left wrist and left forearm revealed no acute fractures or findings. Medications received in ED: Ibuprofen 800 mg p.o. Splint/Immobilization was applied to: Velcro wrist applied to the left arm Response to therapies and reevaluation: Patient reports improvement of pain, ambulatory in ED without distress. Educated on rest, ice, elevation and importance of following up with orthopedic as instructed. Patient verbalized understanding Clinical impression: Left wrist injury Social determinants of health that affect the patient's care were factored into the disposition. Pt is able to afford prescription and OTC medications, given prescription discount card to use if needed. Pt has no PCP follow up, given list for internal medicine resident clinic, local PCPs and orthopedics. Shared decision making regarding disposition was discussed along with the risks, benefits, and alternative options. Patient verbalized understanding and is agreeable to the plan to discharge. Instructed to follow-up with PCP in next 2- 3 days, orthopedic as directed educated on strict ED return precautions. Patient verbalized understanding. Time of Re-Eval 1805 Re-Eval Status Improved ED Course Medication(s) Ordered Medication(s) Ordered: Central Nervous System Agents Sig/Aleksandar Start time Last Medication Dose Route Stop Time Status Admin Ibuprofen 800 MG X1ED STA 02/04 164 DC PO 02/04 1648 Differential Diagnosis Differential Diagnosis Abrasion, Abscess, Cellulitis, Contusion, Fracture, distal radius, Fracture, distal ulna, Fracture, scaphoid, Fracture, trapezoid, Hematoma, Laceration, Neurovascular injury Patient Discharge Departure Vital Signs/Condition Condition Stable Clinical Impression Clinical Impression Primary Impression: Left wrist injury Disposition Decision Discharge )( Discharged to Home Yes )( Time 180 )( Date 02/04/23 Discharge/Care Plan Counseled Regarding Diagnosis, Imaging studies, Prescriptions, Need for follow- up, When to return to ED Patient Instructions ED Wrist Splint, Velcro, ED Wrist Sprain Additional Instructions X-rays completed of your wrist and forearm today did not reveal any fractures. It is important to keep splint in place and follow-up with PCP/orthopedic in the next week if pain continues. Please return to ED for any new or worsening of symptoms Departure Forms [facility] PCP LIST [facility]TH[facility] BY AREA Discharge Note I have spoken with the patient and/or caregivers. I have explained the patient's condition, diagnoses and treatment plan based on the information available to me at this time. I have answered the patient's and/or caregiver's questions and addressed any concerns. The patient and/or caregivers have as good an understanding of the patient's diagnosis, condition and treatment plan as can be expected at this point. The vital signs have been stable. The patient's condition is stable and appropriate for discharge from the emergency department. The patient will pursue further outpatient evaluation with the primary care physician or other designated or consulting physician as outlined in the discharge instructions. The patient and/or caregivers are agreeable to this plan of care and follow-up instructions have been explained in detail. The patient and/or caregivers have received these instructions in written format and have expressed an understanding of the discharge instructions. The patient and/or caregivers are aware that any significant change in condition or worsening of symptoms should prompt an immediate return to this or the closest emergency department or a call to 911. Everardo Vargas 02/04/23 1849: Patient Discharge Departure Vital Signs/Condition Vital Signs First Documented: Result Date Time Pulse Ox 99 02/04 1649 B/P 115/71 02/04 1649 B/P Mean 85.8 02/04 1649 Temp 98.1 02/04 164 Pulse 69 02/04 1649 Resp 16 02/04 164 Last Documented: Result Date Time Pulse Ox 99 02/04 1649 B/P 115/71 07/29 1649 B/P Mean 85.8 02/04 1649 Temp 98.1 02/04 1649 Pulse 69 02/04 1649 Resp 16 02/04 1649 All vital signs available at the time of this entry have been reviewed. Supervising Physician Note Ajay Saw Pt Alone I have reviewed the PA/MARKETING ANALYTICS LEAD's note and plan of care. I was available for consultation as needed at all times during the patient's visit in the emergency department. I agree with the clinical impression, plan and disposition. at 1849 at 1912 RPT #:[id number] END OF [id number] 16:47:00 [facility] ([facility]) EMERGENCY PROVIDER REPORT REPORT#:[id number] REPORT STATUS: Signed DATE:02/04/23 TIME: 1646 PATIENT: PHILIP TOMAS UNIT #: [id number] ROOM/BED: AGE: 27 SEX: F PCP PHYS: Danis Durán MD SERVICE AUTHOR: Johnny Christopher * ALL edits or amendments must be made on the electronic/computer document * Johnny Christopher 02/04/23 164: Provider in Triage - Adult Provider in Triage Initial Greet Date/Time 02/04/231641 Free Text PIT Notes Free Text PIT Notes I have greeted and performed a focused rapid initial assessment of this patient. A comprehensive ED assessment and evaluation of the patient, analysis of all test results, and completion of the medical decision-making process will be conducted by additional ED providers. Patient is stable and in no acute distress. RR: Fair air entry, symmetric expansion CV: Normal cap refill, no cyanosis HX obtain from patient /and [] 27-year-old female presents to the ED for evaluation of her left forearm and wrist pain after she fell and landed on the extremity. Neurovascular sign is intact. Patient's arm was put in a sling upon arrival. Sending for x-ray Notice: Parts of this note were created using Boedo speech recognition dictation software. All things were made to correct any errors at the time of dictation, however there may be some errors present in the pig breeder that were inadvertently overlooked during the dictation. PMH-Provider in Triage Stated Complaint L ARM SWELLING AND PAIN. SHE FELL TODAY Allergies Coded Allergies: No Known Allergies (11/26/17) Home Medications Active Scripts metroNIDAZOLE (FLAGYL) 500 MG PO Q12H metroNIDAZOLE (FLAGYL) 500 MG PO Q12H #20 TABS Prov: 01/03/21 CIPROFLOXACIN 500 MG PO BID CIPROFLOXACIN 500 MG PO BID #20 TABS Prov: 01/03/21 CEPHALEXIN (KEFLEX) 500 MG PO Q8HR CEPHALEXIN (KEFLEX) 500 MG PO Q8HR #21 CAPS Prov: 03/11/21 HYDROcodone/APAP (HYDROcodone/APAP 7.5/325) 1 TAB PO Q6H PRN PRN PAIN HYDROcodone/APAP (HYDROcodone/APAP 7.5/325) 1 TAB PO Q6H PRN PRN PAIN #30 TABS Prov: 01/30/18 Additional Medical History None Additional Surgical History None Alcohol Use Denies EtOH use Drug Use Denies recreational drugs Smoking status: Smoking status for patients 13 years old or older: Never Smoker Other Social History Local resident, Good social support at 1648 at 1849 RPT #:[id number] END OF [id number] 17:59:00 [facility] ([facility]) EMERGENCY PROVIDER REPORT REPORT#:[id number] REPORT STATUS: Signed DATE:06/24/21 TIME: 175 PATIENT: PHILIP TOMAS UNIT #: [id number] ROOM/BED: AGE: 26 SEX: F PCP PHYS: No Primary or Family Physician SERVICE AUTHOR: Pedro Dangelo MD * ALL edits or amendments must be made on the electronic/computer document * HPI-General Illness Free Text HPI Notes Free Text HPI Notes 26-year-old female brought in complaining of headaches, facial twitching, a odd sensation behind her bilateral eyes, and bilateral arm numbness. Duration 3 weeks but has worsened in the last couple of days. Patient try to establish care with a PCP at to see them however she was referred to the ER due to lack of availability. No past medical history no drug allergies. Patient does not take OCPs. No family history of clotting or cancer. Patient exhibits no other complaints or concerns at this time. Family social history are otherwise noncontributory General Initial Greet Date/Time 06/24/21 1311 Provider in Triage PE General/Const No acute distress Respiratory/Chest No respiratory distress Neurologic Alert, Oriented X3, Speech normal Presentation Chief Complaint Weakness Review of Systems ROS Statements All systems rev neg except as marked. Complete sys rev neg except as marked. Review of Systems Neurologic Reports: Headache, Numbness. Free Text ROS Notes Free Text ROS Notes Constitutional: denies - chills, fever, fatigue. admits to none eyes: denies - blurry vision, double vision, eye pain, redness. admits to none ENT: denies - ear drainage, ear ringing, ear ache, mouth pain. admits to none respiratory: denies - cough, dyspnea on exertion, shortness of breath. admits to none. cardiovascular: denies - chest pain, edema, palpitations, syncope. admits to none GI: denies - abdominal pain, diarrhea, nausea, vomiting. admits to none : denies - dysuria, flank pain, hematuria, urinary frequency. admits to none musculoskeletal: denies - back pain, extremity pain, extremity swelling. admits to none hematologic: denies - adenopathy, bleeding, bruising. admits to none endocrine: denies - polyuria, polydipsia, weight loss. admits to none skin: denies - rash, erythema, jaundice, laceration. admits to none allergy: denies - hives, itching. admits to none psychiatric: denies - hallucinations, suicidal ideation, depression. anxiety. admits to none Past Medical History - Adult Stated Complaint ARMS FEEL BURNING, TWITCHING CHEEKS Allergies Coded Allergies: No Known Allergies (11/26/17) Home Medications Active Scripts metroNIDAZOLE (FLAGYL) 500 MG PO Q12H metroNIDAZOLE (FLAGYL) 500 MG PO Q12H #20 TABS Prov: 01/03/21 CIPROFLOXACIN (CIPRO) 500 MG PO BID CIPROFLOXACIN (CIPRO) 500 MG PO BID #20 TABS Prov: 01/03/21 CEPHALEXIN (KEFLEX) 500 MG PO Q8HR CEPHALEXIN (KEFLEX) 500 MG PO Q8HR #21 CAPS Prov: 03/11/21 HYDROcodone/APAP (NORCO 7.5/325) 1 TAB PO Q6H PRN PRN PAIN HYDROcodone/APAP (NORCO 7.5/325) 1 TAB PO Q6H PRN PRN PAIN #30 TABS Prov: 01/30/18 Additional Medical History None Additional Surgical History None Additional Family History REviewed and not contributory to the reason for this admission Alcohol Use Denies EtOH use Drug Use Denies recreational drugs Smoking status: Smoking status for patients 13 years old or older: Never Smoker Other Social History Local resident, Good social support Physical Exam Vital Signs Vital Signs First Documented: Result Date Time Pulse Ox 99 06/24 1309 B/P 123/81 06/24 1309 B/P Mean 94.9 06/24 1309 Temp 98.1 06/24 1309 Pulse 72 06/24 1309 Resp 16 06/24 1309 O2 Delivery Room air 06/24 1850 Last Documented: Result Date Time Pulse Ox 99 06/24 1850 B/P 122/80 06/24 1850 B/P Mean 94 06/24 1850 O2 Delivery Room air 06/24 1850 Pulse 66 06/24 1850 Resp 16 06/24 1850 Temp 98.1 06/24 1309 Review of Vital Signs Reviewed Free Text PE Notes Free Text PE Notes General: awake, alert, well developed, no acute distress head: normocephalic, atraumatic eyes: atraumatic: PERRL, EOMI, no scleral icterus, conjunctiva nml ears/nose/throat: atraumatic, airway patent, pharynx nml, uvula midline neck: supple, atraumatic, full range of motion, no swelling, no adenopathy respiratory/chest: atraumatic, breath sounds nml, breath sounds equal bilat, no rales/rhonchi/wheeze cardiovascular: heart rate nml, regular rhythm, heart sounds nml, no rubs/gallop /murmurs abdomen/GI: soft, non-tender, no distention, no rebound/guarding, no hernia, no mass Back: atraumatic, inspection nml, full range of motion, non-tender MS Upper Extremity: atraumatic, inspection nml, full range of motion, no swelling, no deformity, neurologic intact, vascular intact MS Lower Extremity/Pelvis: atraumatic, inspection nml , full range of motion, no edema, no erythema, neurologic intact, vascular intact, pelvis non-tender skin: atraumatic, color nml, no rash, warm, dry, intact, nml turgor gu: deferred rectum: deferred neurologic: oriented x3, speech nml, no motor deficits, no sensory deficits, CN II-XII intact psychiatric: affect nml, mood nml, not suicidal Interpretation Diagnostics Lab Results Interpretation Considerations Independ review imaging, Reviewed prior records Results Laboratory Tests 06/24/21 1409: [Embedded Image Not Available] Laboratory Tests: 06/24 06/24 1436 1409 Chemistry Sodium (137 - 145 mmol/L) 138 Potassium (3.4 - 5.0 mmol/L) 4.3 Chloride (98 - 107 mmol/L) 103 Carbon Dioxide (22 - 30 mmol/L) 22 BUN (7 - 17 mg/dL) 19 H Creatinine (0.5 - 1.0 mg/dL) 0.6 Glomerular Filtr Rate (>60) 129 Glucose (74 - 106 mg/dL) 87 Calcium (8.4 - 10.2 mg/dL) 10.1 Rapid Troponin I (0.00 - 0.079 ng/mL) 0.01 Hematology WBC (5.0 - 12.0 x10 3/uL) 12.5 H RBC (4.20 - 5.40 x10 6/uL) 4.28 Hgb (12.0 - 16.0 g/dL) 12.5 Hct (36.0 - 46.0 %) 37.5 MCV (81 - 99 fL) 88 MCH (27 - 31 pg) 29.2 MCHC (33 - 37 g/dL) 33.3 RDW (11.5 - 15.5 %) 12.5 Plt Count (130 - 400 x10 3/uL) 309 MPV (9.4 - 16.4 fL) 9.9 Neut % (Auto) (43 - 65 %) 69.2 H Lymph % (Auto) (20.5 - 45.5 %) 23.7 King % (Auto) (5.5 - 11.7 %) 5.7 Eos % (Auto) (0.9 - 2.9 %) 0.6 L Baso % (Auto) (0.2 - 1.0 %) 0.3 Neut # (Auto) (2.2 - 4.8 x10 3/uL) 8.67 H Lymph # (Auto) (1.3 - 2.9 x10 3/uL) 2.97 H King # (Auto) (0.3 - 0.8 x10 3/uL) 0.72 Eos # (Auto) (0.0 - 0.2 x10 3/uL) 0.07 Baso # (Auto) (0.0 - 0.1 x10 3/uL) 0.04 Immature Gran % (0.0 - 2.0 %) 0.5 Nucleated RBC % (0 - 1.0 %) 0.0 Urines Urine Color (Yellow) Yellow Urine Appearance (Clear) Slightly-Cloudy Urine pH (5.0 - 8.0) 6.0 Ur Specific [place] (<1.030) 1.023 Urine Protein (Negative mg/dL) NEGATIVE Urine Glucose (UA) (Negative) Negative Urine Ketones (Negative mg/dL) 15 (1+) H Urine Blood (Negative) Negative Urine Nitrite (Negative) Negative Urine Bilirubin (Negative) Negative Urine Urobilinogen (Negative mg/dL) Negative Ur Leukocyte Esterase (Negative) TRACE H Urine RBC (<4 - 5 /HPF) 0-3 Urine WBC (<4 - 5 /HPF) 0-3 Ur Squamous Epith Cells (0 - 5 (RARE) /HPF) 0-5 (RARE) Urine Bacteria (None - Rare /HPF) None Urine HCG, Qual (NEGATIVE) NEGATIVE Recent Impressions: CAT SCAN - CT C-SPINE W/O CONT 06/24 1745 Report Impression - Status: SIGNED Entered: 06/24/20211820 IMPRESSION: 1. Unremarkable noncontrast CT of the brain. 2. Normal CT of the cervical spine with no evidence of cervical spine fracture. Impression By: Nara Haney MD CAT SCAN - CT HEAD/BRAIN W/O CONT 06/24 1745 Report Impression - Status: SIGNED Entered: 06/24/20211820 IMPRESSION: 1. Unremarkable noncontrast CT of the brain. 2. Normal CT of the cervical spine with no evidence of cervical spine fracture. Impression By: Nara Haney MD Lab Imaging Statement Laboratory radiographic studies reviewed and considered in the medical decision-making. Re-Evaluation MDM Free Text MDM Notes Free Text MDM Notes Work-up negative. Will discharge. Will provide neurology follow-up No red flags for cavernous sinus thrombosis, other ominous pathology. Did instruct neuro follow-up if she continues have symptoms ED Course Medication(s) Ordered Medication(s) Ordered: Central Nervous System Agents Sig/Aleksandar Start time Last Medication Dose Route Stop Time Status Admin Ketorolac 15 MG X1ED STA 06/24 1334 DC 12/16 Tromethamine IV 06/24 1335 1431 Electrolytic, Caloric, And Rand Sig/Aleksandar Start time Last Medication Dose Route Stop Time Status Admin Sodium Chloride 1,000 ML X1ED STA 06/24 1335 DC /16 IV 06/24 1336 1429 Gastrointestinal Drugs Sig/Aleksandar Start time Last Medication Dose Route Stop Time Status Admin Ondansetron HCl 4 MG X1ED STA 06/24 1335 DC /16 IV 06/24 1336 1431 Patient Discharge Departure Vital Signs/Condition Vital Signs First Documented: Result Date Time Pulse Ox 99 06/24 1309 B/P 123/81 06/24 1309 B/P Mean 94.9 06/24 1309 Temp 98.1 06/24 1309 Pulse 72 06/24 1309 Resp 16 06/24 1309 O2 Delivery Room air 06/24 1850 Last Documented: Result Date Time Pulse Ox 99 06/24 1850 B/P 122/80 06/24 1850 B/P Mean 94 06/24 1850 O2 Delivery Room air 06/24 1850 Pulse 66 06/24 1850 Resp 16 06/24 1850 Temp 98.1 06/24 1309 All vital signs available at the time of this entry have been reviewed. Clinical Impression Clinical Impression Primary Impression: Headache Secondary Impressions: Bilateral arm numbness and tingling while sleeping Disposition Decision Discharge )( Discharged to Home Yes )( Time 1835 )( Date 06/24/21 Quality Measures Primary Headache CT Normal neurologic exam, Change in type of BOURGEOIS at 0807 [facility] #:[id number] END OF [id number] 13:47:00 [facility] ([facility]) EMERGENCY PROVIDER REPORT REPORT#:[id number] REPORT STATUS: Signed DATE:06/24/21 TIME: 1347 PATIENT: PHILIP TOMAS UNIT #: [id number] ROOM/BED: AGE: 26 SEX: F PCP PHYS: No Primary or Family Physician SERVICE AUTHOR: Georgia Costa * ALL edits or amendments must be made on the electronic/computer document * Provider in Triage - Adult Provider in Triage Initial Greet Date/Time 06/24/21 1311 Greet Note I have greeted and performed a focused rapid initial assessment of this patient. A comprehensive ED assessment and evaluation of the patient, analysis of all test results, and completion of the medical decision-making process will be conducted by additional ED providers. PE General/Const No acute distress Respiratory/Chest No respiratory distress Neurologic Alert, Oriented X3, Speech normal MSE Not Complete The medical screening exam is not complete. Further evaluation and/or treatment is required. The patient will be re-directed to the emergency department. Free Text PIT Notes Free Text PIT Notes 26-year-old female presents to the ED with complaints of bilateral arm tingling, twitching in the left cheek, and intermittent headache for the last 3 weeks. Patient states she normally takes Tylenol or ibuprofen for headache and it improves. Patient also complains of dizziness intermittently over the last 3 weeks. Patient states she tried to make an appointment with her PCP but does not have any appointments until beginning of year. Patient reports a history of anemia, states she has not had any increased stress at home or work, denies history of migraines. Patient denies any current chest pain, shortness of breath, nausea, vomiting, cough, congestion. PMH-Provider in Triage Stated Complaint ARMS FEEL BURNING, TWITCHING CHEEKS Allergies Coded Allergies: No Known Allergies (11/26/17) Home Medications Active Scripts metroNIDAZOLE (FLAGYL) 500 MG PO Q12H metroNIDAZOLE (FLAGYL) 500 MG PO Q12H #20 TABS Prov: 01/03/21 CIPROFLOXACIN (CIPRO) 500 MG PO BID CIPROFLOXACIN (CIPRO) 500 MG PO BID #20 TABS Prov: 01/03/21 CEPHALEXIN (KEFLEX) 500 MG PO Q8HR CEPHALEXIN (KEFLEX) 500 MG PO Q8HR #21 CAPS Prov: 03/11/21 HYDROcodone/APAP (NORCO 7.5/325) 1 TAB PO Q6H PRN PRN PAIN HYDROcodone/APAP (NORCO 7.5/325) 1 TAB PO Q6H PRN PRN PAIN #30 TABS Prov: 01/30/18 Additional Medical History None Additional Surgical History None at 1424 at 2200 RPT #:[id number] END OF [id number] 07:29:00 [facility] ([facility]) EMERGENCY PROVIDER REPORT REPORT#:[id number] REPORT STATUS: Signed DATE:03/11/21 TIME: 728 PATIENT: PHILIP TOMAS UNIT #: [id number] ROOM/BED: AGE: 25 SEX: F PCP PHYS: No Primary or Family Physician SERVICE AUTHOR: Telma Santana [employer] * ALL edits or amendments must be made on the electronic/computer document * HPI-Extremity Prob Upper Free Text HPI Notes Free Text HPI Notes 25-year-old female presents to the ER states that she noticed a area on her left upper chest where when she moves her shoulder she feels a palpable knot yesterday but then woke up this morning her arm is hurting. Patient denies injury, trauma or fall. Patient denies exposures to sick contacts or recent travel. Patient has not taken anything logs-[id number] today. Patient's family drove her to the ER. Patient denies chest pain, shortness of breath, cough, fever, nausea, vomiting or diarrhea. General Confirmed Patient Yes Initial Greet Date/Time 03/11/21728 PCP [facility] Presentation Chief Complaint Shoulder problem L Hx Obtained From Patient Onset Occurred Yesterday Symptom Duration Constant, Lasting hours Progression since Onset Constant, Gradually worsening Caused by No trauma by history Location Shoulder L Quality Painful Severity: Onset Mild Severity: Current Pain level 6 out of 10 Associated with Denies: Abdominal pain, Back pain, Bleeding, Chest pain, Cramping, Difficulty breathing, Dyspnea, Fever, Joint swelling, Loss of consciousness, Muscle pain, Nausea, Neck pain, Neuro symptoms pre-arriv, Numb extremities, Swelling, Syncope , Unable to move joint, Vomiting, Weakness, Wound discharge. Exacerbated by Range of motion, Movement Relieved by Nothing Context Recent Healthcare No recent doctor visit, No recent hospitalization /Sexual Hx Menstrual Cycle lmp: about 3 months ago Sexual History/ Control Reports: Norplant (NEXPLANON). Denies: IUD. Review of Systems Focused Review of Systems Constitutional Denies: Chills, Fever, Lethargy. Musculoskeletal Reports: Extremity pain. Denies: Back pain, Extremity swelling, Joint pain, Joint swelling, Lumbar pain, Myalgia, Neck pain, Thoracic pain. Skin Denies: Diaphoresis, Rash. Neurologic Denies: Focal weakness, Numbness. Additional Review of Systems Respiratory Denies: Cough, non-productive, Cough, productive, Dyspnea on exertion, Hemoptysis, Parox nocturnal dyspnea, Pleuritic pain, Shortness of breath, Wheezing. Cardiovascular Denies: Chest pain, Dyspnea on exertion, Edema, Orthopnea, Palpitations, Parox nocturnal dyspnea, Syncope. GI Denies: Abdominal pain, Anorexia, Belching, Bloody/tarry stool, Constipation, Diarrhea, Dysphagia, Hematemesis, Hematochezia, Mucousy stool, Melena, Nausea, Rectal pain, Vomiting. Psychiatric Denies: Agitation, Anxiety. Past Medical History - Adult Stated Complaint LEFT ARM PAIN Allergies Coded Allergies: No Known Allergies (11/26/17) Home Medications Active Scripts metroNIDAZOLE (FLAGYL) 500 MG PO Q12H metroNIDAZOLE (FLAGYL) 500 MG PO Q12H #20 TABS Prov: 01/03/21 CIPROFLOXACIN (CIPRO) 500 MG PO BID CIPROFLOXACIN (CIPRO) 500 MG PO BID #20 TABS Prov: 01/03/21 HYDROcodone/APAP (NORCO 7.5/325) 1 TAB PO Q6H PRN PRN PAIN HYDROcodone/APAP (NORCO 7.5/325) 1 TAB PO Q6H PRN PRN PAIN #30 TABS Prov: 01/30/18 Review of Nursing Notes Rev avail, and agree Pt reports no significant: Past medical history, Past surgical history, Family history, Social history Additional Medical History None Additional Surgical History None Additional Family History REviewed and not contributory to the reason for this admission Alcohol Use Denies EtOH use Drug Use Denies recreational drugs Smoking status: Smoking status for patients 13 years old or older: Never Smoker Other Social History Local resident, Good social support Ambulatory Status Independent Physical Exam Vital Signs Vital Signs First Documented: Result Date Time Pulse Ox 99 03/11 0730 B/P 111/72 03/11 0730 B/P Mean 85 03/11 730 O2 Delivery Room air 03/11 730 Temp 98.1 03/11 730 Pulse 67 03/11 730 Resp 16 03/11 730 Last Documented: Result Date Time Pulse Ox 99 03/11 0730 B/P 111/72 03/11 730 B/P Mean 85.0 03/11 730 Temp 98.1 03/11 730 Pulse 67 03/11 730 Resp 16 03/11 730 O2 Delivery Room air 03/11 730 Review of Vital Signs Reviewed Focused PE General/Const General/Const Awake, Alert, No acute distress, Well appearing, Well developed , Well hydrated, Well nourished, Cooperative MS Neck Neck Supple, Full range of motion, No swelling, Non-tender Resp/Chest Respiratory/Chest Breath sounds NL, Breath sounds = bilat, No respiratory distress, No rales, No rhonchi, No wheezing Cardiovascular Cardiovascular Heart rate NL, Regular rhythm, Heart sounds NL, No gallop, No murmurs, No rubs, Peripheral circulation NL MS Upper Extrem Upper Ext Brief Normals Shoulder L exam normal Text/Dict Notes Patient has full range of motion but when patient does move her left shoulder up she does have a knot that pops up on the left upper chest which is palpable and visual to the naked eye. This could represents an inflamed lymph node. No axilla lymph node enlargement noted. MS Wrist/Hand Wrist/Hand Atraumatic, Inspection NL, Full range of motion, No swelling, No erythema, Non-tender, No deformity, Neurologic intact, Vascular intact, No compartment syndrome, No clubbing/cyanosis Skin Skin Color NL, Warm, Dry, Intact, Turgor NL, No swelling Neurologic Neurologic Oriented X3, Speech NL, No motor deficits, No sensory deficits Additional PE Abdomen/GI Abdomen/GI Atraumatic, Soft, Non-tender, McBurney's non-tender, No guarding, No rebound, BS normoactive, No distention, No hernia, No palpable mass, No pulsatile mass Psychiatric Psychiatric Affect NL, Mood NL Interpretation Diagnostics Lab Results Interpretation Results Recent Impressions: RADIOLOGY - XR CLAVICLE COMP LT 03/11 858 Report Impression - Status: SIGNED Entered: 03/11/2021932 IMPRESSION: 1. Normal left clavicle study. Impression By: Tyrone Gaines MD RADIOLOGY - XR CHEST 1 V 03/11 858 Report Impression - Status: SIGNED Entered: 03/11/2021932 IMPRESSION: 1. Unremarkable chest x-ray. Impression By: Tyrone Gaines MD ULTRASOUND - US EXTREM [facility] 03/11 903 Report Impression - Status: SIGNED Entered: 03/11/2021947 IMPRESSION: 1. Small lymph node at the area concern in this left supraclavicular region. Impression By: Tyrone Gaines MD Imaging Statement Radiographic studies reviewed and considered in the medical decision-making. Point of Care Testing Pulse Oximetry Pulse Ox % 99 On: Room air Interpretation Pulse oximetry normal Time 0730 Re-Evaluation MDM Free Text MDM Notes Free Text MDM Notes Discussed plan of care with Dr Tidwell and patient, and he also examined the patient, xray negative. US shows inflammed lymph node L supacliavicular region. RX Keflex. Follow up with PCP 2 days. Discussed plan of care with the patient, patient understands and agrees with the plan. Written educational handouts/material appropriate to the pt's problem provided to the pt. All questions and concerns were addressed. Pt advised to follow-up with PCP in 2-3 days. Stressed importance of follow-up. ER return precautions discussed with pt. Pt advised Plan to discharge discussed with pt. Discussed diagnosis, results, and treatment plan with pt. Pt to return to ED for any new, worsening, persistent, or concerning symptoms. Pt verbalized complete understanding. ED Course Medication(s) Ordered Medication(s) Ordered: Central Nervous System Agents Sig/Aleksandar Start time Last Medication Dose Route Stop Time Status Admin Naproxen 500 MG X1ED STA 03/11 729 DC 03/11 PO 03/11 730 0739 Patient Discharge Departure Vital Signs/Condition Vital Signs First Documented: Result Date Time Pulse Ox 99 03/11 730 B/P 111/72 03/11 730 B/P Mean 85 09/02 0730 O2 Delivery Room air 03/11 730 Temp 98.1 03/11 730 Pulse 67 03/11 0730 Resp 16 03/11 730 Last Documented: Result Date Time Pulse Ox 99 03/11 730 B/P 111/72 03/11 730 B/P Mean 85.0 03/11 730 Temp 98.1 03/11 730 Pulse 67 03/11 0730 Resp 16 03/11 0730 O2 Delivery Room air 03/11 730 All vital signs available at the time of this entry have been reviewed. Condition Stable Clinical Impression Clinical Impression Primary Impression: Supraclavicular lymphadenopathy Disposition Decision Discharge )( Discharged to Home Yes )( Time 1040 )( Date 03/11/21 Discharge/Care Plan Counseled Regarding Diagnosis, Imaging studies, Medication changes, Prescriptions, Need for follow-up, When to return to ED Prescriptions KEFLEX (Auto) Prescriptions Current Visit Scripts CEPHALEXIN (KEFLEX) 500 MG PO Q8HR CEPHALEXIN (KEFLEX) 500 MG PO Q8HR #21 CAPS Prescriptions Reviewed Risks, Benefits, Alternative treatment Patient Instructions ED Lymphangitis Departure Forms FREE OR [facility] PCP LIST WORK/SCHOOL EXCUSE VARIABLE Discharge Note I have spoken with the patient and/or caregivers. I have explained the patient's condition, diagnoses and treatment plan based on the information available to me at this time. I have answered the patient's and/or caregiver's questions and addressed any concerns. The patient and/or caregivers have as good an understanding of the patient's diagnosis, condition and treatment plan as can be expected at this point. The vital signs have been stable. The patient's condition is stable and appropriate for discharge from the emergency department. The patient will pursue further outpatient evaluation with the primary care physician or other designated or consulting physician as outlined in the discharge instructions. The patient and/or caregivers are agreeable to this plan of care and follow-up instructions have been explained in detail. The patient and/or caregivers have received these instructions in written format and have expressed an understanding of the discharge instructions. The patient and/or caregivers are aware that any significant change in condition or worsening of symptoms should prompt an immediate return to this or the closest emergency department or a call to 911. Quality Measures Smoking Cessation Screened, non user at 2252 RPT #:[id number] END OF [id number] 07:29:00 [facility] ([facility]) EMERGENCY PROVIDER REPORT REPORT#:[id number] REPORT STATUS: Signed DATE:03/11/21 TIME: 728 PATIENT: PHILIP TOMAS UNIT #: [id number] ROOM/BED: AGE: 25 SEX: F PCP PHYS: No Primary or Family Physician SERVICE AUTHOR: Tlema Santana [employer] * ALL edits or amendments must be made on the electronic/computer document * Telma Santana 03/11/21728: HPI-Extremity Prob Upper Free Text HPI Notes Free Text HPI Notes 25-year-old female presents to the ER states that she noticed a area on her left upper chest where when she moves her shoulder she feels a palpable knot yesterday but then woke up this morning her arm is hurting. Patient denies injury, trauma or fall. Patient denies exposures to sick contacts or recent travel. Patient has not taken anything dbbz-ohi-cneqram today. Patient's family drove her to the ER. Patient denies chest pain, shortness of breath, cough, fever, nausea, vomiting or diarrhea. General Confirmed Patient Yes Initial Greet Date/Time 03/11/21728 PCP [facility] Presentation Chief Complaint Shoulder problem L Hx Obtained From Patient Onset Occurred Yesterday Symptom Duration Constant, Lasting hours Progression since Onset Constant, Gradually worsening Caused by No trauma by history Location Shoulder L Quality Painful Severity: Onset Mild Severity: Current Pain level 6 out of 10 Associated with Denies: Abdominal pain, Back pain, Bleeding, Chest pain, Cramping, Difficulty breathing, Dyspnea, Fever, Joint swelling, Loss of consciousness, Muscle pain, Nausea, Neck pain, Neuro symptoms pre-arriv, Numb extremities, Swelling, Syncope , Unable to move joint, Vomiting, Weakness, Wound discharge. Exacerbated by Range of motion, Movement Relieved by Nothing Context Recent Healthcare No recent doctor visit, No recent hospitalization /Sexual Hx Menstrual Cycle lmp: about 3 months ago Sexual History/ Control Reports: Norplant (NEXPLANON). Denies: IUD. Review of Systems Focused Review of Systems Constitutional Denies: Chills, Fever, Lethargy. Musculoskeletal Reports: Extremity pain. Denies: Back pain, Extremity swelling, Joint pain, Joint swelling, Lumbar pain, Myalgia, Neck pain, Thoracic pain. Skin Denies: Diaphoresis, Rash. Neurologic Denies: Focal weakness, Numbness. Additional Review of Systems Respiratory Denies: Cough, non-productive, Cough, productive, Dyspnea on exertion, Hemoptysis, Parox nocturnal dyspnea, Pleuritic pain, Shortness of breath, Wheezing. Cardiovascular Denies: Chest pain, Dyspnea on exertion, Edema, Orthopnea, Palpitations, Parox nocturnal dyspnea, Syncope. GI Denies: Abdominal pain, Anorexia, Belching, Bloody/tarry stool, Constipation, Diarrhea, Dysphagia, Hematemesis, Hematochezia, Mucousy stool, Melena, Nausea, Rectal pain, Vomiting. Psychiatric Denies: Agitation, Anxiety. Past Medical History - Adult Stated Complaint LEFT ARM PAIN Allergies Coded Allergies: No Known Allergies (11/26/17) Home Medications Active Scripts metroNIDAZOLE (FLAGYL) 500 MG PO Q12H metroNIDAZOLE (FLAGYL) 500 MG PO Q12H #20 TABS Prov: 01/03/21 CIPROFLOXACIN (CIPRO) 500 MG PO BID CIPROFLOXACIN (CIPRO) 500 MG PO BID #20 TABS Prov: 01/03/21 HYDROcodone/APAP (NORCO 7.5/325) 1 TAB PO Q6H PRN PRN PAIN HYDROcodone/APAP (NORCO 7.5/325) 1 TAB PO Q6H PRN PRN PAIN #30 TABS Prov: 01/30/18 Review of Nursing Notes Rev avail, and agree Pt reports no significant: Past medical history, Past surgical history, Family history, Social history Additional Medical History None Additional Surgical History None Additional Family History REviewed and not contributory to the reason for this admission Alcohol Use Denies EtOH use Drug Use Denies recreational drugs Smoking status: Smoking status for patients 13 years old or older: Never Smoker Other Social History Local resident, Good social support Ambulatory Status Independent Physical Exam Vital Signs Vital Signs First Documented: Result Date Time Pulse Ox 99 03/11 0730 B/P 111/72 03/11 730 B/P Mean 85 03/11 730 O2 Delivery Room air 03/11 730 Temp 98.1 03/11 730 Pulse 67 03/11 0730 Resp 16 03/11 730 Last Documented: Result Date Time Pulse Ox 99 03/11 730 B/P 111/72 03/11 730 B/P Mean 85.0 03/11 730 Temp 98.1 03/11 730 Pulse 67 03/11 730 Resp 16 03/11 730 O2 Delivery Room air 03/11 730 Review of Vital Signs Reviewed Focused PE General/Const General/Const Awake, Alert, No acute distress, Well appearing, Well developed , Well hydrated, Well nourished, Cooperative MS Neck Neck Supple, Full range of motion, No swelling, Non-tender Resp/Chest Respiratory/Chest Breath sounds NL, Breath sounds = bilat, No respiratory distress, No rales, No rhonchi, No wheezing Cardiovascular Cardiovascular Heart rate NL, Regular rhythm, Heart sounds NL, No gallop, No murmurs, No rubs, Peripheral circulation NL MS Upper Extrem Upper Ext Brief Normals Shoulder L exam normal Text/Dict Notes Patient has full range of motion but when patient does move her left shoulder up she does have a knot that pops up on the left upper chest which is palpable and visual to the naked eye. This could represents an inflamed lymph node. No axilla lymph node enlargement noted. MS Wrist/Hand Wrist/Hand Atraumatic, Inspection NL, Full range of motion, No swelling, No erythema, Non-tender, No deformity, Neurologic intact, Vascular intact, No compartment syndrome, No clubbing/cyanosis Skin Skin Color NL, Warm, Dry, Intact, Turgor NL, No swelling Neurologic Neurologic Oriented X3, Speech NL, No motor deficits, No sensory deficits Additional PE Abdomen/GI Abdomen/GI Atraumatic, Soft, Non-tender, McBurney's non-tender, No guarding, No rebound, BS normoactive, No distention, No hernia, No palpable mass, No pulsatile mass Psychiatric Psychiatric Affect NL, Mood NL Interpretation Diagnostics Lab Results Interpretation Results Recent Impressions: RADIOLOGY - XR CLAVICLE COMP LT 03/11 858 Report Impression - Status: SIGNED Entered: 03/11/2021932 IMPRESSION: 1. Normal left clavicle study. Impression By: Tyrone Gaines MD RADIOLOGY - XR CHEST 1 V 03/11 858 Report Impression - Status: SIGNED Entered: 03/11/2021932 IMPRESSION: 1. Unremarkable chest x-ray. Impression By: Tyrone Gaines MD ULTRASOUND - US EXTREM [facility] [employer] [facility] 03/11 0903 Report Impression - Status: SIGNED Entered: 03/11/2021 0948 IMPRESSION: 1. Small lymph node at the area concern in this left supraclavicular region. Impression By: Tyrone Gaines MD Imaging Statement Radiographic studies reviewed and considered in the medical decision-making. Point of Care Testing Pulse Oximetry Pulse Ox % 99 On: Room air Interpretation Pulse oximetry normal Time 0730 Re-Evaluation MDM Free Text MDM Notes Free Text MDM Notes Discussed plan of care with Dr Tidwell and patient, and he also examined the patient, xray negative. US shows inflammed lymph node L supacliavicular region. RX Keflex. Follow up with PCP 2 days. Discussed plan of care with the patient, patient understands and agrees with the plan. Written educational handouts/material appropriate to the pt's problem provided to the pt. All questions and concerns were addressed. Pt advised to follow-up with PCP in 2-3 days. Stressed importance of follow-up. ER return precautions discussed with pt. Pt advised Plan to discharge discussed with pt. Discussed diagnosis, results, and treatment plan with pt. Pt to return to ED for any new, worsening, persistent, or concerning symptoms. Pt verbalized complete understanding. ED Course Medication(s) Ordered Medication(s) Ordered: Central Nervous System Agents Sig/Aleksandar Start time Last Medication Dose Route Stop Time Status Admin Naproxen 500 MG X1ED STA 03/11 729 DC 03/11 PO 03/11 0730 0739 Patient Discharge Departure Vital Signs/Condition Vital Signs First Documented: Result Date Time Pulse Ox 99 03/11 0730 B/P 111/72 03/11 0730 B/P Mean 85 03/11 0730 O2 Delivery Room air 03/11 0730 Temp 98.1 03/11 0730 Pulse 67 03/11 0730 Resp 16 03/11 0730 Last Documented: Result Date Time Pulse Ox 99 03/11 0730 B/P 111/72 03/11 0730 B/P Mean 85.0 03/11 0730 Temp 98.1 03/11 0730 Pulse 67 03/11 0730 Resp 16 03/11 0730 O2 Delivery Room air 03/11 730 All vital signs available at the time of this entry have been reviewed. Condition Stable Clinical Impression Clinical Impression Primary Impression: Supraclavicular lymphadenopathy Disposition Decision Discharge )( Discharged to Home Yes )( Time 1040 )( Date 03/11/21 Discharge/Care Plan Counseled Regarding Diagnosis, Imaging studies, Medication changes, Prescriptions, Need for follow-up, When to return to ED Prescriptions KEFLEX (Auto) Prescriptions Current Visit Scripts CEPHALEXIN (KEFLEX) 500 MG PO Q8HR CEPHALEXIN (KEFLEX) 500 MG PO Q8HR #21 CAPS Prescriptions Reviewed Risks, Benefits, Alternative treatment Patient Instructions ED Lymphangitis Departure Forms FREE OR LOW COST CLINICS [place] PCP LIST WORK/SCHOOL EXCUSE VARIABLE Discharge Note I have spoken with the patient and/or caregivers. I have explained the patient's condition, diagnoses and treatment plan based on the information available to me at this time. I have answered the patient's and/or caregiver's questions and addressed any concerns. The patient and/or caregivers have as good an understanding of the patient's diagnosis, condition and treatment plan as can be expected at this point. The vital signs have been stable. The patient's condition is stable and appropriate for discharge from the emergency department. The patient will pursue further outpatient evaluation with the primary care physician or other designated or consulting physician as outlined in the discharge instructions. The patient and/or caregivers are agreeable to this plan of care and follow-up instructions have been explained in detail. The patient and/or caregivers have received these instructions in written format and have expressed an understanding of the discharge instructions. The patient and/or caregivers are aware that any significant change in condition or worsening of symptoms should prompt an immediate return to this or the closest emergency department or a call to 911. Quality Measures Smoking Cessation Screened, non user Ryan Tidwell 03/12/21 0728: Patient Discharge Departure Supervising Physician Note MidLv Saw Pt Alone I have reviewed the PA/MARKETING ANALYTICS LEAD's note and plan of care. I was available for consultation as needed at all times during the patient's visit in the emergency department. I agree with the clinical impression, plan and disposition. at [phone] at 0728 RPT #:[id number] END OF [id number] 18:09:00 [facility] ([facility]) EMERGENCY PROVIDER REPORT REPORT#:[id number] REPORT STATUS: Signed DATE:01/03/21 TIME: 1808 PATIENT: PHILIP TOMAS UNIT #: [id number] ROOM/BED: AGE: 25 SEX: F PCP PHYS: No Primary or Family Physician SERVICE AUTHOR: Rajiv Alston DO R1 * ALL edits or amendments must be made on the electronic/computer document * Rajiv Alston 01/03/211808: HPI-Nausea/Vomit/Diarrhea General Initial Greet Date/Time 01/03/21 1456 Provider in Triage PE General/Const No acute distress Presentation Chief Complaint Nausea, Vomiting, Diarrhea, Abd pain, intermittent Free Text HPI Notes Free Text HPI Notes 25F with recent travel to [place] who presents with nausea, vomiting, diarrhea abd pain. patient says she was in [place] where she had abd pain only and was given nitazoxanide for suspected parasitic infection. now she has nausea, vomiting- non bloddy, and watery diarrhea for the last day. the abd pain is periumbilical with intermittent sharp pains. she has mild diffuse tenderness to palpation. WBC is 19. vitals stable. only PMH is appy 2018. Review of Systems Focused Review of Systems Constitutional Reports: Chills. Denies: Fever. GI Reports: Abdominal pain, Diarrhea, Melena, Nausea, Vomiting. Denies: Hematemesis, Hematochezia. Skin Denies: Abrasion, Laceration. Neurologic Denies: Dizziness, Headache. Past Medical History - Adult Stated Complaint NVD Allergies Coded Allergies: No Known Allergies (11/26/17) Home Medications Active Scripts HYDROcodone/APAP (NORCO 7.5/325) 1 TAB PO Q6H PRN PRN PAIN HYDROcodone/APAP (NORCO 7.5/325) 1 TAB PO Q6H PRN PRN PAIN #30 TABS Prov: 01/30/18 Additional Medical History None Additional Surgical History None Additional Family History REviewed and not contributory to the reason for this admission Alcohol Use Denies EtOH use Drug Use Denies recreational drugs Smoking status: Smoking status for patients 13 years old or older: Never Smoker Other Social History Local resident Physical Exam Vital Signs Vital Signs First Documented: Result Date Time Pulse Ox 97 01/03 1558 B/P 102/66 01/03 1558 B/P Mean 78 01/03 1558 O2 Delivery Room air 01/03 1558 Temp 36.8 01/03 1558 Pulse 91 01/03 1558 Resp 15 01/03 1558 Last Documented: Result Date Time Pulse Ox 95 01/03 2049 B/P 109/73 01/03 2049 B/P Mean 84.8 01/03 2049 Temp 36.8 01/03 2049 Pulse 77 01/03 2049 Resp 18 01/03 2049 O2 Delivery Room air 01/03 1558 Review of Vital Signs Reviewed, Vital signs normal Focused PE General/Const General/Const Awake, Alert, No acute distress Eyes Eyes Atraumatic, EOMI Ears/Nose/Throat Ears/Nose/Throat Atraumatic Resp/Chest Respiratory/Chest Atraumatic, Breath sounds NL, Breath sounds = bilat, No respiratory distress Cardiovascular Cardiovascular Heart rate NL, Regular rhythm, Heart sounds NL Abdomen/GI Abdomen/GI Atraumatic, Soft, No guarding, No rebound, No distention Tenderness/Guarding/Rebound Tender diffuse. MS Back Back Full range of motion Skin Skin Atraumatic, No rash Neurologic Neurologic Oriented X3, Speech NL, No motor deficits Interpretation Diagnostics Lab Results Interpretation Results Laboratory Tests 01/03/21 1617: [Embedded Image Not Available] Laboratory Tests: 01/03 01/03 1617 1611 Chemistry Sodium (137 - 145 mmol/L) 136 L Potassium (3.4 - 5.0 mmol/L) 3.7 Chloride (98 - 107 mmol/L) 102 Carbon Dioxide (22 - 30 mmol/L) 22 BUN (7 - 17 mg/dL) 15 Creatinine (0.5 - 1.0 mg/dL) 0.6 Glomerular Filtr Rate (>60) 131 Glucose (74 - 106 mg/dL) 100 Calcium (8.4 - 10.2 mg/dL) 9.2 Total Bilirubin (0.2 - 1.3 mg/dL) 0.5 Conjugated Bilirubin (0 - 0.3 mg/dL) 0 Unconjugated Bilirubin (0 - 1.1 mg/dL) 0.3 AST (15 - 46 U/L) 26 ALT (0 - 34 U/L) 27 Total Alk Phosphatase (38 - 126 U/L) 99 Total Protein (6.3 - 8.2 g/dL) 8.7 H Albumin (3.5 - 5.0 g/dL) 4.9 Lipase (23 - 300 U/L) 77 Hematology WBC (5.0 - 12.0 x10 3/uL) 19.7 H RBC (4.20 - 5.40 x10 6/uL) 4.90 Hgb (12.0 - 16.0 g/dL) 14.3 Hct (36.0 - 46.0 %) 43.5 MCV (81 - 99 fL) 89 MCH (27 - 31 pg) 29.2 MCHC (33 - 37 g/dL) 32.9 L RDW (11.5 - 15.5 %) 12.6 Plt Count (130 - 400 x10 3/uL) 301 MPV (9.4 - 16.4 fL) 10.1 Neut % (Auto) (43 - 65 %) 92.2 H Lymph % (Auto) (20.5 - 45.5 %) 4.5 L King % (Auto) (5.5 - 11.7 %) 2.3 L Eos % (Auto) (0.9 - 2.9 %) 0.2 L Baso % (Auto) (0.2 - 1.0 %) 0.2 Neut # (Auto) (2.2 - 4.8 x10 3/uL) 18.17 H Lymph # (Auto) (1.3 - 2.9 x10 3/uL) 0.88 L King # (Auto) (0.3 - 0.8 x10 3/uL) 0.45 Eos # (Auto) (0.0 - 0.2 x10 3/uL) 0.04 Baso # (Auto) (0.0 - 0.1 x10 3/uL) 0.03 Immature Gran % (0.0 - 2.0 %) 0.6 Nucleated RBC % (0 - 1.0 %) 0.0 Urines Urine Color (Yellow) Yellow Urine Appearance (Clear) Slightly-Cloudy Urine pH (5.0 - 8.0) 5.0 Ur Specific [place] (<1.030) 1.033 H Urine Protein (Negative mg/dL) 30 (1+) H Urine Glucose (UA) (Negative) Negative Urine Ketones (Negative mg/dL) 15 (1+) H Urine Blood (Negative) Negative Urine Nitrite (Negative) Negative Urine Bilirubin (Negative) Negative Urine Urobilinogen (Negative mg/dL) 2.0 H Ur Leukocyte Esterase (Negative) TRACE H Urine RBC (<4 - 5 /HPF) 0-3 Urine WBC (<4 - 5 /HPF) 6-10 H Ur Squamous Epith Cells (0 - 5 (RARE) /HPF) 0-5 (RARE) Urine Bacteria (None - Rare /HPF) None Urine Mucus (<Rare /LPF) 2+ H Urine HCG, Qual (NEGATIVE) NEGATIVE Microbiology: Date/Time Procedure - Status Source Growth 01/03 161 Trichrome Stain - RECD STOOL 01/03 1611 Ova and Parasites - RECD STOOL 01/03 1611 Ova and Parasites - RECD STOOL 01/03 1611 Stool Leukocytes - RECD STOOL 01/03 1611 Stool Culture - RECD STOOL Recent Impressions: CAT SCAN - CT ABD PELVIS W/CONT 01/03 1825 Report Impression - Status: SIGNED Entered: 01/03/2021 1914 Impression: There is a fluid-filled appearance of the small large bowel with minimally increased enhancement suggestive of colitis. Additional findings as detailed above Impression By: [email or web address] Tonia Dickens MD Re-Evaluation MDM ED Course Medication(s) Ordered Medication(s) Ordered: Diagnostic Agents Sig/Aleksandar Start time Last Medication Dose Route Stop Time Status Admin Iopamidol 100 ML .STK-MED ONE 01/03 1837 DC 01/03 IV 01/03 1838 1837 Electrolytic, Caloric, And Rand Sig/Aleksandar Start time Last Medication Dose Route Stop Time Status Admin Sodium Chloride 1,000 ML X1ED STA 01/03 1456 DC 01/03 IV 01/03 1457 1631 Gastrointestinal Drugs Sig/Aleksandar Start time Last Medication Dose Route Stop Time Status Admin Famotidine 20 MG X1ED STA 01/03 1615 DCD 01/03 Sodium Chloride 10 ML IV 01/04 0414 1631 Ondansetron HCl 4 MG X1ED STA 01/03 1457 DC 01/03 IV 01/03 1458 1631 Patient Discharge Departure Vital Signs/Condition Vital Signs First Documented: Result Date Time Pulse Ox 97 01/03 1558 B/P 102/66 01/03 1558 B/P Mean 78 01/03 1558 O2 Delivery Room air 01/03 1558 Temp 36.8 01/03 1558 Pulse 91 01/03 1558 Resp 15 01/038 Last Documented: Result Date Time Pulse Ox 95 01/03 2049 B/P 109/73 01/03 2049 B/P Mean 84.8 01/03 2049 Temp 36.8 01/03 2049 Pulse 77 01/03 2049 Resp 18 01/03 2049 O2 Delivery Room air 01/03 155 All vital signs available at the time of this entry have been reviewed. Condition Stable Clinical Impression Clinical Impression Primary Impression: Enteritis Secondary Impressions: Diarrhea, Leukocytosis Disposition Decision Discharge )( Discharged to Home Yes )( Time 2016 )( Date 01/03/21 Discharge/Care Plan Counseled Regarding Diagnosis, Lab results, Imaging studies, When to return to ED (Auto) Prescriptions Current Visit Scripts metroNIDAZOLE (FLAGYL) 500 MG PO Q12H metroNIDAZOLE (FLAGYL) 500 MG PO Q12H #20 TABS CIPROFLOXACIN (CIPRO) 500 MG PO BID CIPROFLOXACIN (CIPRO) 500 MG PO BID #20 TABS Patient Instructions ED Gastroenteritis Bacterial Additional Instructions use tylenol/ibuprofen for pain. drink lots of water. return to ED for worsening abd pain or bloody diarrhea. Departure Forms FREE OR LOW COST CLINICS Discharge Note I have spoken with the patient and/or caregivers. I have explained the patient's condition, diagnoses and treatment plan based on the information available to me at this time. I have answered the patient's and/or caregiver's questions and addressed any concerns. The patient and/or caregivers have as good an understanding of the patient's diagnosis, condition and treatment plan as can be expected at this point. The vital signs have been stable. The patient's condition is stable and appropriate for discharge from the emergency department. The patient will pursue further outpatient evaluation with the primary care physician or other designated or consulting physician as outlined in the discharge instructions. The patient and/or caregivers are agreeable to this plan of care and follow-up instructions have been explained in detail. The patient and/or caregivers have received these instructions in written format and have expressed an understanding of the discharge instructions. The patient and/or caregivers are aware that any significant change in condition or worsening of symptoms should prompt an immediate return to this or the closest emergency department or a call to 1. Clyde Vargas 01/03/212039: Physical Exam Focused PE General/Const General/Const Awake, Alert Resp/Chest Respiratory/Chest Atraumatic, No respiratory distress Patient Discharge Departure Supervising Physician Note Resident Saw Pt This patient was seen by a resident. I have personally seen the patient, performed the critical or santana portions of the service, and participated in the management of the patient. I have reviewed and agree with the resident's note, and I have reviewed all labs, ECGs, and imaging studies or reports. I agree with this resident's findings, exam and plan. ENTERITIS LEUKOCYTOSIS ABX OUTPT F/U at 2103 RPT #:[id number] END OF [id number] 18:09:00 [facility] ([facility]) EMERGENCY PROVIDER REPORT REPORT#:[id number] REPORT STATUS: Signed DATE:01/03/21 TIME: 1808 PATIENT: PHILIP TOMAS UNIT #: [id number] ROOM/BED: AGE: 25 SEX: F PCP PHYS: No Primary or Family Physician SERVICE AUTHOR: Rajiv Alston DO R1 * ALL edits or amendments must be made on the electronic/computer document * Rajiv Alston 01/03/211808: HPI-Nausea/Vomit/Diarrhea General Initial Greet Date/Time 01/03/21 1456 Provider in Triage PE General/Const No acute distress Presentation Chief Complaint Nausea, Vomiting, Diarrhea, Abd pain, intermittent Free Text HPI Notes Free Text HPI Notes 25F with recent travel to [place] who presents with nausea, vomiting, diarrhea abd pain. patient says she was in [place] where she had abd pain only and was given nitazoxanide for suspected parasitic infection. now she has nausea, vomiting- non bloddy, and watery diarrhea for the last day. the abd pain is periumbilical with intermittent sharp pains. she has mild diffuse tenderness to palpation. WBC is 19. vitals stable. only PMH is appy 2018. Review of Systems Focused Review of Systems Constitutional Reports: Chills. Denies: Fever. GI Reports: Abdominal pain, Diarrhea, Melena, Nausea, Vomiting. Denies: Hematemesis, Hematochezia. Skin Denies: Abrasion, Laceration. Neurologic Denies: Dizziness, Headache. Past Medical History - Adult Stated Complaint NVD Allergies Coded Allergies: No Known Allergies (11/26/17) Home Medications Active Scripts HYDROcodone/APAP (NORCO 7.5/325) 1 TAB PO Q6H PRN PRN PAIN HYDROcodone/APAP (NORCO 7.5/325) 1 TAB PO Q6H PRN PRN PAIN #30 TABS Prov: 01/30/18 Additional Medical History None Additional Surgical History None Additional Family History REviewed and not contributory to the reason for this admission Alcohol Use Denies EtOH use Drug Use Denies recreational drugs Smoking status: Smoking status for patients 13 years old or older: Never Smoker Other Social History Local resident Physical Exam Vital Signs Review of Vital Signs Reviewed, Vital signs normal Focused PE General/Const General/Const Awake, Alert, No acute distress Eyes Eyes Atraumatic, EOMI Ears/Nose/Throat Ears/Nose/Throat Atraumatic Resp/Chest Respiratory/Chest Atraumatic, Breath sounds NL, Breath sounds = bilat, No respiratory distress Cardiovascular Cardiovascular Heart rate NL, Regular rhythm, Heart sounds NL Abdomen/GI Abdomen/GI Atraumatic, Soft, No guarding, No rebound, No distention Tenderness/Guarding/Rebound Tender diffuse. MS Back Back Full range of motion Skin Skin Atraumatic, No rash Neurologic Neurologic Oriented X3, Speech NL, No motor deficits Interpretation Diagnostics Lab Results Interpretation Results Laboratory Tests 01/03/21 1617: [Embedded Image Not Available] Laboratory Tests: 01/03 01/03 1617 1611 Chemistry Sodium (137 - 145 mmol/L) 136 L Potassium (3.4 - 5.0 mmol/L) 3.7 Chloride (98 - 107 mmol/L) 102 Carbon Dioxide (22 - 30 mmol/L) 22 BUN (7 - 17 mg/dL) 15 Creatinine (0.5 - 1.0 mg/dL) 0.6 Glomerular Filtr Rate (>60) 131 Glucose (74 - 106 mg/dL) 100 Calcium (8.4 - 10.2 mg/dL) 9.2 Total Bilirubin (0.2 - 1.3 mg/dL) 0.5 Conjugated Bilirubin (0 - 0.3 mg/dL) 0 Unconjugated Bilirubin (0 - 1.1 mg/dL) 0.3 AST (15 - 46 U/L) 26 ALT (0 - 34 U/L) 27 Total Alk Phosphatase (38 - 126 U/L) 99 Total Protein (6.3 - 8.2 g/dL) 8.7 H Albumin (3.5 - 5.0 g/dL) 4.9 Lipase (23 - 300 U/L) 77 Hematology WBC (5.0 - 12.0 x10 3/uL) 19.7 H RBC (4.20 - 5.40 x10 6/uL) 4.90 Hgb (12.0 - 16.0 g/dL) 14.3 Hct (36.0 - 46.0 %) 43.5 MCV (81 - 99 fL) 89 MCH (27 - 31 pg) 29.2 MCHC (33 - 37 g/dL) 32.9 L RDW (11.5 - 15.5 %) 12.6 Plt Count (130 - 400 x10 3/uL) 301 MPV (9.4 - 16.4 fL) 10.1 Neut % (Auto) (43 - 65 %) 92.2 H Lymph % (Auto) (20.5 - 45.5 %) 4.5 L King % (Auto) (5.5 - 11.7 %) 2.3 L Eos % (Auto) (0.9 - 2.9 %) 0.2 L Baso % (Auto) (0.2 - 1.0 %) 0.2 Neut # (Auto) (2.2 - 4.8 x10 3/uL) 18.17 H Lymph # (Auto) (1.3 - 2.9 x10 3/uL) 0.88 L King # (Auto) (0.3 - 0.8 x10 3/uL) 0.45 Eos # (Auto) (0.0 - 0.2 x10 3/uL) 0.04 Baso # (Auto) (0.0 - 0.1 x10 3/uL) 0.03 Immature Gran % (0.0 - 2.0 %) 0.6 Nucleated RBC % (0 - 1.0 %) 0.0 Urines Urine Color (Yellow) Yellow Urine Appearance (Clear) Slightly-Cloudy Urine pH (5.0 - 8.0) 5.0 Ur Specific [place] (<1.030) 1.033 H Urine Protein (Negative mg/dL) 30 (1+) H Urine Glucose (UA) (Negative) Negative Urine Ketones (Negative mg/dL) 15 (1+) H Urine Blood (Negative) Negative Urine Nitrite (Negative) Negative Urine Bilirubin (Negative) Negative Urine Urobilinogen (Negative mg/dL) 2.0 H Ur Leukocyte Esterase (Negative) TRACE H Urine RBC (<4 - 5 /HPF) 0-3 Urine WBC (<4 - 5 /HPF) 6-10 H Ur Squamous Epith Cells (0 - 5 (RARE) /HPF) 0-5 (RARE) Urine Bacteria (None - Rare /HPF) None Urine Mucus (<Rare /LPF) 2+ H Urine HCG, Qual (NEGATIVE) NEGATIVE Microbiology: Date/Time Procedure - Status Source Growth 01/03 1611 Trichrome Stain - RECD STOOL 01/03 1611 Ova and Parasites - RECD STOOL 01/03 1611 Ova and Parasites - RECD STOOL 01/03 1611 Stool Leukocytes - RECD STOOL 01/03 1611 Stool Culture - RECD STOOL Recent Impressions: CAT SCAN - CT ABD PELVIS W/CONT 01/03 1825 Report Impression - Status: SIGNED Entered: 01/03/2021 1914 Impression: There is a fluid-filled appearance of the small large bowel with minimally increased enhancement suggestive of colitis. Additional findings as detailed above Impression By: [email or web address] - Tonia Frias MD Patient Discharge Departure Vital Signs/Condition Condition Stable Clinical Impression Clinical Impression Primary Impression: Enteritis Secondary Impressions: Diarrhea, Leukocytosis Disposition Decision Discharge )( Discharged to Home Yes )( Time 2016 )( Date 01/03/21 Discharge/Care Plan Counseled Regarding Diagnosis, Lab results, Imaging studies, When to return to ED (Auto) Prescriptions Current Visit Scripts metroNIDAZOLE (FLAGYL) 500 MG PO Q12H metroNIDAZOLE (FLAGYL) 500 MG PO Q12H #20 TABS CIPROFLOXACIN (CIPRO) 500 MG PO BID CIPROFLOXACIN (CIPRO) 500 MG PO BID #20 TABS Patient Instructions ED Gastroenteritis Bacterial Additional Instructions use tylenol/ibuprofen for pain. drink lots of water. return to ED for worsening abd pain or bloody diarrhea. Departure Forms FREE OR LOW COST CLINICS Discharge Note I have spoken with the patient and/or caregivers. I have explained the patient's condition, diagnoses and treatment plan based on the information available to me at this time. I have answered the patient's and/or caregiver's questions and addressed any concerns. The patient and/or caregivers have as good an understanding of the patient's diagnosis, condition and treatment plan as can be expected at this point. The vital signs have been stable. The patient's condition is stable and appropriate for discharge from the emergency department. The patient will pursue further outpatient evaluation with the primary care physician or other designated or consulting physician as outlined in the discharge instructions. The patient and/or caregivers are agreeable to this plan of care and follow-up instructions have been explained in detail. The patient and/or caregivers have received these instructions in written format and have expressed an understanding of the discharge instructions. The patient and/or caregivers are aware that any significant change in condition or worsening of symptoms should prompt an immediate return to this or the closest emergency department or a call to 911. Clyde Vargas 01/03/212039: Physical Exam Vital Signs Vital Signs First Documented: Result Date Time Pulse Ox 97 01/03 1558 B/P 102/66 01/03 1558 B/P Mean 78 01/03 1558 O2 Delivery Room air 01/03 1558 Temp 36.8 01/03 1558 Pulse 91 01/03 1558 Resp 15 01/03 1558 Last Documented: Result Date Time Pulse Ox 95 01/03 2049 B/P 109/73 01/03 2049 B/P Mean 84.8 01/03 2049 Temp 36.8 01/03 2049 Pulse 77 01/03 2049 Resp 18 01/03 2049 O2 Delivery Room air 01/03 1558 Focused PE General/Const General/Const Awake, Alert Resp/Chest Respiratory/Chest Atraumatic, No respiratory distress Re-Evaluation MDM ED Course Medication(s) Ordered Medication(s) Ordered: Diagnostic Agents Sig/Aleksandar Start time Last Medication Dose Route Stop Time Status Admin Iopamidol 100 ML .STK-MED ONE 01/03 1837 DC 01/03 IV 01/03 1838 183 Electrolytic, Caloric, And Rand Sig/Aleksandar Start time Last Medication Dose Route Stop Time Status Admin Sodium Chloride 1,000 ML X1ED STA 01/03 1456 DC 01/03 IV 01/03 145 1631 Gastrointestinal Drugs Sig/Aleksandar Start time Last Medication Dose Route Stop Time Status Admin Famotidine 20 MG X1ED STA 01/03 1615 DCD 01/03 Sodium Chloride 10 ML IV 01/04 0414 1631 Ondansetron HCl 4 MG X1ED STA 01/03 1457 DC 01/03 IV 01/03 1458 1631 Patient Discharge Departure Vital Signs/Condition Vital Signs First Documented: Result Date Time Pulse Ox 97 01/03 1558 B/P 102/66 01/03 1558 B/P Mean 78 01/03 1558 O2 Delivery Room air 01/03 1558 Temp 36.8 01/03 1558 Pulse 91 01/03 1558 Resp 15 01/03 1558 Last Documented: Result Date Time Pulse Ox 95 01/03 2049 B/P 109/73 01/03 2049 B/P Mean 84.8 01/03 2049 Temp 36.8 01/03 204 Pulse 77 01/03 2049 Resp 18 01/03 204 O2 Delivery Room air 01/03 1558 All vital signs available at the time of this entry have been reviewed. Supervising Physician Note Resident Saw Pt This patient was seen by a resident. I have personally seen the patient, performed the critical or santana portions of the service, and participated in the management of the patient. I have reviewed and agree with the resident's note, and I have reviewed all labs, ECGs, and imaging studies or reports. I agree with this resident's findings, exam and plan. ENTERITIS LEUKOCYTOSIS ABX OUTPT F/U at 2103 at 0004 RPT #:[id number] END OF [id number] 16:12:00 [facility] ([facility]) EMERGENCY PROVIDER REPORT REPORT#:[id number] REPORT STATUS: Signed DATE:01/03/21 TIME: 1611 PATIENT: PHILIP TOMAS UNIT #: [id number] ROOM/BED: AGE: 25 SEX: F PCP PHYS: No Primary or Family Physician SERVICE AUTHOR: Telma Santana NP * ALL edits or amendments must be made on the electronic/computer document * Telma SantanaBrandy 01/03/21 1612: Provider in Triage - Adult Provider in Triage Initial Greet Date/Time 01/03/21 1456 Greet Note I have greeted and performed a focused rapid initial assessment of this patient. A comprehensive ED assessment and evaluation of the patient, analysis of all test results, and completion of the medical decision-making process will be conducted by additional ED providers. PE General/Const No acute distress MSE Not Complete The medical screening exam is not complete. Further evaluation and/or treatment is required. The patient will be re-directed to the emergency department. Free Text PIT Notes Free Text PIT Notes NAUSEA/VOMITING X1 DIARRHEA 5-6 PMH: NONE PSH:NONE SOCIAL: NEGATIVE ALL: NONE PCP: NONE PMH-Provider in Triage Stated Complaint NVD Allergies Coded Allergies: No Known Allergies (11/26/17) Home Medications Active Scripts HYDROcodone/APAP (NORCO 7.5/325) 1 TAB PO Q6H PRN PRN PAIN HYDROcodone/APAP (NORCO 7.5/325) 1 TAB PO Q6H PRN PRN PAIN #30 TABS Prov: 01/30/18 Additional Medical History None Additional Surgical History None Alcohol Use Denies EtOH use Drug Use Denies recreational drugs Other Social History Local resident at 2040 RPT #:[id number] END OF [id number] 16:12:00 [facility] EMERGENCY PROVIDER REPORT REPORT#:[id number] REPORT STATUS: Signed DATE:01/03/21 TIME: 1611 PATIENT: PHILIP TOMAS UNIT #: [id number] ROOM/BED: AGE: 25 SEX: F PCP PHYS: No Primary or Family Physician SERVICE AUTHOR: Telma Santana NP * ALL edits or amendments must be made on the electronic/computer document * SejalTelmaBrandy 01/03/21 1612: Provider in Triage - Adult Provider in Triage Initial Greet Date/Time 01/03/21 1456 Greet Note I have greeted and performed a focused rapid initial assessment of this patient. A comprehensive ED assessment and evaluation of the patient, analysis of all test results, and completion of the medical decision-making process will be conducted by additional ED providers. PE General/Const No acute distress MSE Not Complete The medical screening exam is not complete. Further evaluation and/or treatment is required. The patient will be re-directed to the emergency department. Free Text PIT Notes Free Text PIT Notes 25-year-old female presents to the ER the ER states that she is having nausea times vomiting x1 episode with diarrhea 5-6 episodes over the last 3 to 4 days. Patient states she has been in [place] and saw a physician there which gave her a protozoan medication to take when she got back to the [place], patient states she took 500 mg yesterday and then none since. Patient states she does have abdominal pain and feels like something may be wrong. Patient denies any fever, chest pain but reports chest burning, shortness of breath. Patient does report right abdominal pain 10/10. Patient reports that she is irregular. Her last period was about 2 months ago and she is currently on IUD Mirena.Patient states that she did travel to [place] last week. Patient denies any exposures to sick contacts. PMH: NONE PSH:NONE SOCIAL: NEGATIVE ALL: NONE PCP: NONE PMH-Provider in Triage Stated Complaint NVD Allergies Coded Allergies: No Known Allergies (11/26/17) Home Medications Active Scripts HYDROcodone/APAP (NORCO 7.5/325) 1 TAB PO Q6H PRN PRN PAIN HYDROcodone/APAP (NORCO 7.5/325) 1 TAB PO Q6H PRN PRN PAIN #30 TABS Prov: 01/30/18 Additional Medical History None Additional Surgical History None Alcohol Use Denies EtOH use Drug Use Denies recreational drugs Other Social History Local resident at 204 at 2031 RPT #:[id number] END OF [id number] 22:39:00 [facility] ([facility]) EMERGENCY PROVIDER REPORT REPORT#:[id number] REPORT STATUS: Signed DATE:09/18/18 TIME: 2238 PATIENT: PHILIP TOMAS UNIT #: [id number] ROOM/BED: AGE: 23 SEX: F PCP PHYS: No Primary or Family Physician SERVICE AUTHOR: Billie Danielson NP * ALL edits or amendments must be made on the electronic/computer document * HPI-Extremity Prob Upper General Confirmed Patient Yes Initial Greet Date/Time 09/18/182226 PCP no PCP Presentation Chief Complaint Arm problem L Hx Obtained From Patient Onset Occurred Days ago (3) Symptom Duration Waxes and wanes Progression since Onset Waxes and wanes Caused by No trauma by history Location Arm L Quality Painful Severity: Onset Mild Severity: Current Mild Context /Sexual Hx Status Denies Free Text HPI Notes Free Text HPI Notes 23 y/o F pt w/ no significant pmhx presents to the ED c/o intermittent left arm pain onset 3 days ago. Pt reports that her arm started hurting and her left hand went numb on Monday spontaneously. Pt used tylenol and heating pads to make the pain go away. 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 Pt states that she does have a nexplanon in her left arm. pt denies fever, cough, back pain, CP, SOB, n/v/d, or any other concerns and complaints at this time. Portions of this section were scribed by Wm Marshall on 09/18/18 at 2257 Review of Systems ROS Statements All systems rev neg except as marked. Focused Review of Systems Constitutional Denies: Chills, Fatigue, Fever, Weakness - generalized. Musculoskeletal Reports: Extremity pain. Denies: Back pain, Myalgia, Neck pain. Skin Denies: Abrasion, Abscess, Burn, Rash. Neurologic Reports: Numbness. Denies: Dizziness, Headache, Seizure, Syncope. Additional Review of Systems Eyes Denies: Discharge bilat, Redness bilat. Ears/Nose/Throat Denies: Earache bilat, Nasal congestion, Sinus problem, Sore throat. Respiratory Denies: Cough, non-productive, Cough, productive, Shortness of breath, Wheezing. Cardiovascular Denies: Chest pain, Palpitations, Syncope. GI Denies: Abdominal pain, Constipation, Diarrhea, Nausea, Vomiting. Female Denies: Dysuria, Flank pain, Hematuria, . Portions of this section were scribed by Wm Marshall on 09/18/18 at 2239 Past Medical History - Adult Stated Complaint LEFT ARM WEAKNESS Allergies Coded Allergies: No Known Allergies (11/26/17) Home Medications Active Scripts HYDROcodone/APAP (NORCO 7.5/325) 1 TAB PO Q6H PRN PRN PAIN HYDROcodone/APAP (NORCO 7.5/325) 1 TAB PO Q6H PRN PRN PAIN #30 TABS Prov: 01/30/18 Review of Nursing Notes Rev avail, and agree Pt reports no significant: Past medical history, Past surgical history, Family history Additional Medical History None Additional Surgical History None Additional Family History REviewed and not contributory to the reason for this admission Alcohol Use Denies EtOH use Drug Use Denies recreational drugs Smoking status for patients 13 years old or older: Never Smoker Other Social History Local resident Ambulatory Status Independent Portions of this section were scribed by Wm Marshall on 09/18/18 at 2239 Physical Exam Vital Signs Vital Signs First Documented: Result Date Time Pulse Ox 98 09/18 2223 B/P 120/75 09/18 2223 B/P Mean 89.8 09/183 Temp 37.0 09/18 2222 Pulse 95 09/183 Resp 15 09/18 2223 O2 Delivery Room air 09/19 2223 Last Documented: Result Date Time Pulse Ox 99 09/19 0026 B/P 117/74 09/19 0026 B/P Mean 88 09/19 0026 Temp 36.9 09/19 0026 Pulse 88 09/19 0026 Resp 16 09/19 0026 O2 Delivery Room air 09/19 2223 Review of Vital Signs Reviewed Focused PE General/Const General/Const Awake, Alert, No acute distress, Well appearing, Well developed , Well hydrated, Well nourished, Cooperative, Not toxic appearing MS Neck Neck Supple, No meningismus, Full range of motion, No swelling, Non-tender Resp/Chest Respiratory/Chest Breath sounds NL, Breath sounds = bilat, No respiratory distress, No rales, No rhonchi, No wheezing, No retractions Cardiovascular Cardiovascular Heart rate NL, Regular rhythm, Heart sounds NL, No gallop, No murmurs, No rubs MS Upper Extrem Upper Extremity/MS Inspection NL, Full range of motion, No swelling, No snuffbox tenderness, No erythema, No deformity, Neurologic intact, Vascular intact, No ligamentous injury, Tendon function NL, No compartment syndrome, No circumferential injury, No clubbing/cyanosis Skin Skin Color NL, No rash, Warm, Dry, Intact Neurologic Neurologic Oriented X3, Speech NL, Gait NL Additional PE MS Head Head Atraumatic, Normocephalic Eyes Eyes No periorbital redness, No periorbital swelling, Eyelids NL Ears/Nose/Throat Ears/Nose/Throat Airway patent, Nose exam NL, No facial swelling Abdomen/GI Abdomen/GI Soft, Non-tender, No guarding, No rebound, No distention MS Back Back Inspection NL, Full range of motion, Painless range of motion, Non- tender MS Lower Extrem Lower Ext/Pelvis/MS Inspection NL, Full range of motion, No swelling Psychiatric Psychiatric Affect NL, Mood NL, Cognitive function NL, Judgment/insight NL, Thought content NL Portions of this section were scribed by Wm Marshall on 09/18/18 at 2245 Interpretation Diagnostics Lab Results Interpretation Results Recent Impressions: CAT SCAN - CT HEAD/BRAIN W/O CONT 09/18 2340 Report Impression - Status: SIGNED Entered: 09/18/2018 2358 IMPRESSION: No evidence of acute intracranial abnormality. Impression By: [email or web address] Robbie Marroquin MD Point of Care Testing Pulse Oximetry Pulse Ox % 98 On: Room air Interpretation Interpreted by me, Pulse oximetry normal Time 2223 Portions of this section were scribed by mW Marshall on 09/18/18 at 2239 Re-Evaluation MDM Free Text MDM Notes Free Text MDM Notes Imaging studies and discharge plan discussed with patient. Patient agrees with plan. Instructed to follow up with PCP in 2 days. Stressed importance of follow up. Instructed to return to ED with new, worsening or concerning symptoms. Patient verbalized understanding. Re-Evaluation/Progress Re-Evaluation/Progress Time of Re-Eval 0010 Re-Eval Status Improved Pain Re-Evaluation Pain improved ED Course Medication(s) Ordered Medication(s) Ordered: Autonomic Drugs Sig/Aleksandar Start time Last Medication Dose Route Stop Time Status Admin Cyclobenzaprine HCl 10 MG X1ED STA 09/18 2237 DC 09/18 PO 09/18 223 2245 Central Nervous System Agents Sig/Aleksandar Start time Last Medication Dose Route Stop Time Status Admin Ibuprofen 600 MG X1ED STA 09/18 2238 DC 09/18 PO 09/18 224 2245 Portions of this section were scribed by Wm Marshall on 09/18/18 at 2245 Patient Discharge Departure Vital Signs/Condition Vital Signs First Documented: Result Date Time Pulse Ox 98 09/18 2222 B/P 120/75 09/18 2222 B/P Mean 89.8 09/18 2222 Temp 37.0 09/18 2222 Pulse 95 09/18 2222 Resp 15 09/18 2222 O2 Delivery Room air 09/19 2223 Last Documented: Result Date Time Pulse Ox 99 09/19 0026 B/P 117/74 09/19 002 B/P Mean 88 09/19 0026 Temp 36.9 09/19 002 Pulse 88 09/19 002 Resp 16 09/19 25 O2 Delivery Room air 09/19 2223 All vital signs available at the time of this entry have been reviewed. Condition Improved Clinical Impression Clinical Impression Primary Impression: Left upper extremity numbness Secondary Impressions: Left arm pain Disposition Decision Discharge )( Discharged to Home Yes )( Time 0012 )( Date 09/19/18 Discharge/Care Plan Counseled Regarding Imaging studies, Prescriptions, Need for follow-up, When to return to ED Prescriptions TRAMADOL Prescriptions Reviewed Risks, Benefits, Alternative treatment Discharge Note I have spoken with the patient and/or caregivers. I have explained the patient's condition, diagnoses and treatment plan based on the information available to me at this time. I have answered the patient's and/or caregiver's questions and addressed any concerns. The patient and/or caregivers have as good an understanding of the patient's diagnosis, condition and treatment plan as can be expected at this point. The vital signs have been stable. The patient's condition is stable and appropriate for discharge from the emergency department. The patient will pursue further outpatient evaluation with the primary care physician or other designated or consulting physician as outlined in the discharge instructions. The patient and/or caregivers are agreeable to this plan of care and follow-up instructions have been explained in detail. The patient and/or caregivers have received these instructions in written format and have expressed an understanding of the discharge instructions. The patient and/or caregivers are aware that any significant change in condition or worsening of symptoms should prompt an immediate return to this or the closest emergency department or a call to 911. Quality Measures BP F/U for HTN BP in normal range Smoking Cessation Screened, non user Tobacco Screening/Cessation 18 years or older, Denies tobacco use Supervising Physician Note Scribe Statement Wm Marshall, 09/18/182241, scribing for and in the presence of [Jagjit TERRELL]. Signed By: Wm Marshall, 09/18/182241 Provider Scribed Statement I personally performed the services described in this documentation and reviewed the documentation that was dictated to the scribe(s) in my presence, and it accurately records my words and actions. Billie Danielson, 09/19/18 Portions of this section were scribed by Wm Marshall on 09/18/18 at 2239 at 2221 RPT #:[id number] END OF [id number] 22:39:00 [facility]) EMERGENCY PROVIDER REPORT REPORT#:[id number] REPORT STATUS: Signed DATE:09/18/18 TIME: 2238 PATIENT: PHILIP TOMAS UNIT #: [id number] ROOM/BED: AGE: 23 SEX: F PCP PHYS: No Primary or Family Physician SERVICE AUTHOR: Billie Danielson NP * ALL edits or amendments must be made on the electronic/computer document * Billie Danielson 09/18/18 2239: HPI-Extremity Prob Upper General Confirmed Patient Yes PCP no PCP Presentation Chief Complaint Arm problem L Hx Obtained From Patient Onset Occurred Days ago (3) Symptom Duration Waxes and wanes Progression since Onset Waxes and wanes Caused by No trauma by history Location Arm L Quality Painful Severity: Onset Mild Severity: Current Mild Context /Sexual Hx Status Denies Free Text HPI Notes Free Text HPI Notes 23 y/o F pt w/ no significant pmhx presents to the ED c/o intermittent left arm pain onset 3 days ago. Pt reports that her arm started hurting and her left hand went numb on Monday spontaneously. Pt used tylenol and heating pads to make the pain go away. 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 Pt states that she does have a nexplanon in her left arm. pt denies fever, cough, back pain, CP, SOB, n/v/d, or any other concerns and complaints at this time. Portions of this section were scribed by Wm Marshall on 09/18/18 at 2257 Review of Systems ROS Statements All systems rev neg except as marked. Focused Review of Systems Constitutional Denies: Chills, Fatigue, Fever, Weakness - generalized. Musculoskeletal Reports: Extremity pain. Denies: Back pain, Myalgia, Neck pain. Skin Denies: Abrasion, Abscess, Burn, Rash. Neurologic Reports: Numbness. Denies: Dizziness, Headache, Seizure, Syncope. Additional Review of Systems Eyes Denies: Discharge bilat, Redness bilat. Ears/Nose/Throat Denies: Earache bilat, Nasal congestion, Sinus problem, Sore throat. Respiratory Denies: Cough, non-productive, Cough, productive, Shortness of breath, Wheezing. Cardiovascular Denies: Chest pain, Palpitations, Syncope. GI Denies: Abdominal pain, Constipation, Diarrhea, Nausea, Vomiting. Female Denies: Dysuria, Flank pain, Hematuria, . Portions of this section were scribed by Wm Marshall on 09/18/18 at 2238 Past Medical History - Adult Stated Complaint LEFT ARM WEAKNESS Allergies Coded Allergies: No Known Allergies (11/26/17) Home Medications Active Scripts HYDROcodone/APAP (NORCO 7.5/325) 1 TAB PO Q6H PRN PRN PAIN HYDROcodone/APAP (NORCO 7.5/325) 1 TAB PO Q6H PRN PRN PAIN #30 TABS Prov: 01/30/18 Review of Nursing Notes Rev avail, and agree Pt reports no significant: Past medical history, Past surgical history, Family history Additional Medical History None Additional Surgical History None Additional Family History REviewed and not contributory to the reason for this admission Alcohol Use Denies EtOH use Drug Use Denies recreational drugs Smoking status for patients 13 years old or older: Never Smoker Other Social History Local resident Ambulatory Status Independent Portions of this section were scribed by Wm Marshall on 09/18/18 at 2239 Physical Exam Vital Signs Vital Signs First Documented: Result Date Time Pulse Ox 98 09/18 2222 B/P 120/75 09/18 2222 B/P Mean 89.8 09/18 2222 Temp 98.6 09/18 2222 Pulse 95 09/18 2222 Resp 15 09/18 2222 O2 Delivery Room air 09/19 2223 Last Documented: Result Date Time Pulse Ox 99 09/19 25 B/P 117/74 09/19 25 B/P Mean 88 09/19 25 Temp 98.5 09/19 25 Pulse 88 09/19 25 Resp 16 09/19 25 O2 Delivery Room air 09/19 2223 Review of Vital Signs Reviewed Focused PE General/Const General/Const Awake, Alert, No acute distress, Well appearing, Well developed , Well hydrated, Well nourished, Cooperative, Not toxic appearing MS Neck Neck Supple, No meningismus, Full range of motion, No swelling, Non-tender Resp/Chest Respiratory/Chest Breath sounds NL, Breath sounds = bilat, No respiratory distress, No rales, No rhonchi, No wheezing, No retractions Cardiovascular Cardiovascular Heart rate NL, Regular rhythm, Heart sounds NL, No gallop, No murmurs, No rubs MS Upper Extrem Upper Extremity/MS Inspection NL, Full range of motion, No swelling, No snuffbox tenderness, No erythema, No deformity, Neurologic intact, Vascular intact, No ligamentous injury, Tendon function NL, No compartment syndrome, No circumferential injury, No clubbing/cyanosis Skin Skin Color NL, No rash, Warm, Dry, Intact Neurologic Neurologic Oriented X3, Speech NL, Gait NL Additional PE MS Head Head Atraumatic, Normocephalic Eyes Eyes No periorbital redness, No periorbital swelling, Eyelids NL Ears/Nose/Throat Ears/Nose/Throat Airway patent, Nose exam NL, No facial swelling Abdomen/GI Abdomen/GI Soft, Non-tender, No guarding, No rebound, No distention MS Back Back Inspection NL, Full range of motion, Painless range of motion, Non- tender MS Lower Extrem Lower Ext/Pelvis/MS Inspection NL, Full range of motion, No swelling Psychiatric Psychiatric Affect NL, Mood NL, Cognitive function NL, Judgment/insight NL, Thought content NL Portions of this section were scribed by Wm Marshall on 09/18/18 at 2245 Interpretation Diagnostics Lab Results Interpretation Results Recent Impressions: CAT SCAN - CT HEAD/BRAIN W/O CONT 09/18 2340 Report Impression - Status: SIGNED Entered: 09/18/2018 2358 IMPRESSION: No evidence of acute intracranial abnormality. Impression By: [email or web address] Robbie Marroquin MD Point of Care Testing Pulse Oximetry Pulse Ox % 98 On: Room air Interpretation Interpreted by me, Pulse oximetry normal Time 2223 Portions of this section were scribed by Wm Marshall on 09/18/18 at 2239 Re-Evaluation MDM Free Text MDM Notes Free Text MDM Notes Imaging studies and discharge plan discussed with patient. Patient agrees with plan. Instructed to follow up with PCP in 2 days. Stressed importance of follow up. Instructed to return to ED with new, worsening or concerning symptoms. Patient verbalized understanding. Re-Evaluation/Progress Re-Evaluation/Progress Time of Re-Eval 0010 Re-Eval Status Improved Pain Re-Evaluation Pain improved ED Course Medication(s) Ordered Medication(s) Ordered: Autonomic Drugs Sig/Aleksandar Start time Last Medication Dose Route Stop Time Status Admin Cyclobenzaprine HCl 10 MG X1ED STA 09/18 2237 DC 09/18 PO 09/18 223 2245 Central Nervous System Agents Sig/Aleksandar Start time Last Medication Dose Route Stop Time Status Admin Ibuprofen 600 MG X1ED STA 09/18 2238 DC 09/18 PO 09/180 2245 Portions of this section were scribed by Wm Marshall on 09/18/18 at 2245 Patient Discharge Departure Vital Signs/Condition Vital Signs First Documented: Result Date Time Pulse Ox 98 09/18 2222 B/P 120/75 09/18 2222 B/P Mean 89.8 09/18 2222 Temp 98.6 09/18 2222 Pulse 95 09/18 2222 Resp 15 09/18 2223 O2 Delivery Room air 09/19 2223 Last Documented: Result Date Time Pulse Ox 99 09/19 0026 B/P 117/74 09/19 0026 B/P Mean 88 09/19 0026 Temp 98.5 09/19 0026 Pulse 88 09/19 0026 Resp 16 09/19 0026 O2 Delivery Room air 09/19 2223 All vital signs available at the time of this entry have been reviewed. Condition Improved Clinical Impression Clinical Impression Primary Impression: Left upper extremity numbness Secondary Impressions: Left arm pain Disposition Decision Discharge )( Discharged to Home Yes )( Time 0012 )( Date 09/19/18 Discharge/Care Plan Counseled Regarding Imaging studies, Prescriptions, Need for follow-up, When to return to ED Prescriptions TRAMADOL Prescriptions Reviewed Risks, Benefits, Alternative treatment Discharge Note I have spoken with the patient and/or caregivers. I have explained the patient's condition, diagnoses and treatment plan based on the information available to me at this time. I have answered the patient's and/or caregiver's questions and addressed any concerns. The patient and/or caregivers have as good an understanding of the patient's diagnosis, condition and treatment plan as can be expected at this point. The vital signs have been stable. The patient's condition is stable and appropriate for discharge from the emergency department. The patient will pursue further outpatient evaluation with the primary care physician or other designated or consulting physician as outlined in the discharge instructions. The patient and/or caregivers are agreeable to this plan of care and follow-up instructions have been explained in detail. The patient and/or caregivers have received these instructions in written format and have expressed an understanding of the discharge instructions. The patient and/or caregivers are aware that any significant change in condition or worsening of symptoms should prompt an immediate return to this or the closest emergency department or a call to 911. Quality Measures BP F/U for HTN BP in normal range Smoking Cessation Screened, non user Tobacco Screening/Cessation 18 years or older, Denies tobacco use Supervising Physician Note Scribe Statement Wm Marshall, 09/18/182, scribing for and in the presence of [Jagjit MARKETING [employer]NALYTICS LEAD]. Signed By: Wm Marshall, 09/18/182 Provider Scribed Statement I personally performed the services described in this documentation and reviewed the documentation that was dictated to the scribe(s) in my presence, and it accurately records my words and actions. Billie Danielson, 09/19/18 Portions of this section were scribed by Wm Marshall on 09/18/18 at 2232 Pedro Dangelo 09/21/18 0617: HPI-Extremity Prob Upper General Initial Greet Date/Time 09/18/18 2227 Physical Exam Vital Signs Vital Signs Interpretation Diagnostics Lab Results Interpretation Results Patient Discharge Departure Vital Signs/Condition Vital Signs Supervising Physician Note MidLv Saw Pt Alone I have reviewed the PA/MARKETING ANALYTICS LEAD's note and plan of care. I was available for consultation as needed at all times during the patient's visit in the emergency department. I agree with the clinical impression, plan and disposition. at [phone] at 0617 [facility] #:[id number] END OF REPORTHCAKW
--- NOTE | 2024-06-04 14:00 | RAD REPORT ---
EXAMINATION: US FIRST TRIMESTER TRANSVAGINAL WITH DOPPLER CLINICAL INDICATION: with pelvic pain TECHNIQUE: Real-time obstetrical ultrasonography of the maternal pelvis and first trimester was performed transvaginally. Color and spectral Doppler evaluation of the ovaries was performed. COMPARISON: No prior exam. FINDINGS: The uterus measures 8 x 4 x 4 cm. The endometrial stripe is normal thickness. A gestational sac is not seen Right ovary normal in size and echotexture Left ovary normal in size and echotexture Right and left adnexa unremarkable No significant free fluid IMPRESSION: Non visualization of a gestational sac within the endometrium. This could be a viable intrauterine pr egnancy in which the gestational sac not seen secondary to the early gestation. Other considerations include an and even ectopic . This should be correlated clinically and with serial beta-hCG levels. Follow-up endovaginal sonogram in one week recommended for reevaluation
[2024-06-04 14:18] LABS: Absolute Lymphocytes (CBC) 2.4 K/uL (0.7-4.9); Absolute Monocytes 0.6 K/uL (0.1-1.3); Basophils % 0.2 % (0-1.3); Eosinophils % 0.4 % (0-4.4); Hematocrit 35.6 % (36.0-45.0); Hemoglobin 12.3 g/dL (12.0-15.0); Lymphocytes % 23.9 % (15.3-44.8); MCH 31.8 pg (27.0-35.0); MCHC 34.4 g/dL (32.0-36.0); MCV 92.5 fL (80-100); MPV 7.3 fL (7.6-11.3); Monocytes % 6.2 % (3.3-12.3); Neutrophils % 69.3 % (41.7-73.7); Platelets 249 thou/uL (152-406); RBC Red Blood Cell Count 3.85 M/uL (3.86-4.86)
[2024-06-04 14:24] LABS: Specific Gravity 1.024 (1.005-1.030); Sqamous Epithelial <5 /HPF (None Seen); Urine Bacteria None Seen /HPF (<20); Urine Bilirubin NEGATIVE (Negative); Urine Blood Negative (Negative); Urine Clarity Clear (Clear); Urine Color Light-Yellow (Yellow); Urine Culture Reflex Order NOT NEEDED; Urine Glucose NEGATIVE (Negative); Urine Ketones NEGATIVE (Negative); Urine Microscopic Reflex YN ORDER UMIC; Urine Mucus Slight /HPF (None Seen); Urine Nitrite NEGATIVE (Negative); Urine Protein TRACE (Negative); Urine RBC <5 /HPF (None Seen); Urine Urobilinogen Normal (Normal); Urine WBC <5 /HPF (<5)
[2024-06-04 14:38] LABS: Anion Gap 8.7 mEq/L (5.0-15.0); Potassium 3.7 mEq/L (3.5-5.1)
--- NOTE | 2024-06-04 14:48 | ER ---
Nurse's Notes [facility] Name: Maria Elena Carlin Age: 28 yrs Sex: Female : 1995 Arrival Date: 06/04/2024 Time: 12:46 Bed 18 Private MD: Diagnosis: Threatened Presentation: 06/04 13:05 Chief complaint: Patient states: Approximately 6 weeks and today started cm10 having vaginal bleeding. Pt reports that the blood was bright red, no clots. Pt reports that the bleeding is now pink. Pt reports pain to the right side of back that radiates to her abdomen. LMP 04/23/24. Pt has not had OB appointment yet. Coronavirus screen: Client denies travel out of the [place] in the last 14 days. Ebola Screen: Patient denies travel to an Ebola-affected area in the 21 days before illness onset. No symptoms or risks identified at this time. Initial Sepsis Screen: Does the patient meet any 2 criteria? No. Patient's initial sepsis screen is negative. Does the patient have a suspected source of infection? No. Patient's initial sepsis screen is negative. Risk Assessment: Do you want to hurt yourself or someone else? Patient reports no desire to harm self or others. Onset of symptoms was June 04, 2024. 13:05 Method Of Arrival: Ambulatory cm10 13:05 Acuity: RAOUL 3 cm10 Triage Assessment: 13:08 General: Appears in no apparent distress. uncomfortable, Behavior is calm, cooperative. cm10 Pain: Complains of pain in right low back Pain radiates to right lower quadrant Pain currently is 7 out of 10 on a pain scale. Quality of pain is described as crampy, Pain began suddenly, Is intermittent. Neuro: No deficits noted. Level of Consciousness is awake, alert, obeys commands, Oriented to person, place, time, situation, Appropriate for age. Respiratory: No deficits noted. Airway is patent Respiratory effort is even, unlabored, Respiratory pattern is regular, symmetrical. 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 - Infectious Disease History:: Denies. - Social history:: Smoking status: Patient denies any tobacco usage or history of. Screenin:26 [facility] ED Fall Risk Assessment (Adult) History of falling in the last 3 months, db including since admission No falls in past 3 months (0 pts) Confusion or Disorientation No (0 pts) Intoxicated or Sedated No (0 pts) Impaired Gait No (0 pts) Mobility Assist Device Used No (0 pt) Altered Elimination No (0 pt) Score/Fall Risk Level 0 - 2 = Low Risk Oriented to surroundings, Maintained a safe environment. Abuse screen: Denies threats or abuse. Denies injuries from another. Nutritional screening: No deficits noted. Tuberculosis screening: No symptoms or risk factors identified. Assessment: 15:15 Reassessment: PT AMBULATORY TO RESTROOM. db 15:15 Reassessment: Patient appears in no apparent distress at this time. Patient and/or db family updated on plan of care and expected duration. Pain level reassessed. Patient is alert, oriented x 3, equal unlabored respirations, skin warm/dry/pink. 15:20 Reassessment: CALLED LAB FOR MEDICATION RHO D IMMUNE GLOBULIN. STATES WILL PREPARE db MEDICATION. 16:00 Obstetrical Assessment: General assessment: awake and alert, skin warm and dry. db assessment:. Reassessment: Patient appears in no apparent distress at this time. Patient and/or family updated on plan of care and expected duration. Pain level reassessed. Patient is alert, oriented x 3, equal unlabored respirations, skin warm/dry/pink. General: Appears in no apparent distress. comfortable, Behavior is calm, cooperative. Neuro: Level of Consciousness is awake, alert, obeys commands, Oriented to person, place, time, situation. : Reports vaginal bleeding that is. Vital Signs: 13:05 BP 119 / 75; Pulse 70; Resp 18; Temp 98.4(O); Pulse Ox 100% on R/A; Weight 53.52 kg; cm10 Height 5 ft. 2 in. ; Pain 7/10; 15:00 BP 105 / 71; Pulse 62; Resp 16; Pulse Ox 100% on R/A; db 16:00 BP 109 / 95; Pulse 72; Resp 16; Pulse Ox 100% on R/A; db 13:05 Body Mass Index 21.58 (53.52 kg, 157.48 cm) cm10 13:05 Pain Scale: Adult cm10 Vitals: 16:00 Heart Tones ULTRASOUND OBTAINED. db ED Course: 12:50 Patient arrived in ED. im 12:54 Graeme Rojas MD is Attending Physician. mara 13:08 Triage completed. cm10 13:09 Arm band placed on right wrist. Patient placed in waiting room. cm10 13:47 US Transvaginal Ob In Process Unspecified. EDMS 14:11 Abo/rh Typing Sent. cm10 14:11 Basic Metabolic Panel Sent. cm10 14:11 CBC with Diff Sent. cm10 14:11 Test, Urine Sent. cm10 14:11 Quantitative Hcg Sent. cm10 14:11 Urinalysis w/ reflexes Sent. cm10 14:11 Initial lab(s) drawn, by ma, sent to lab. Urine collected: clean catch specimen. cm10 Inserted saline lock: 20 gauge in right antecubital area, using aseptic technique. Blood collected. Flushed with 10 mL NS. 14:13 Kelly López, RN is Primary Nurse. db 15:26 Patient has correct armband on for positive identification. Bed in low position. Call db light in reach. Side rails up X 1. Pulse ox on. NIBP on. Warm blanket given. Pillow given. 16:40 Provided Education on: DISCHARGE AND FOLLOWUP. db 16:40 No provider procedures requiring assistance completed. IV discontinued, intact, db bleeding controlled, No redness/swelling at site. Administered Medications: 14:00 Drug: NS 0.9% IV 1000 ml IV at 1000 ml once; to be given as a bolus over 60 minutes db Route: IV; Rate: 1000 ml; Site: right antecubital; 16:32 Follow up: Response: No adverse reaction; IV Status: Completed infusion; IV Intake: db 1000ml 16:00 Drug: Rho D Immune Globulin IM 300 mcg IM once Route: IM; Site: right ventrogluteal; db 16:32 Follow up: Response: No adverse reaction db Medication: 15:26 VIS not applicable for this client. db Intake: 16:32 IV: 1000ml; Total: 1000ml. db Outcome: 14:47 Discharge ordered by . mara 16:40 Discharged to home ambulatory, with family, db 16:40 Condition: stable 16:40 Discharge instructions given to patient, family, Instructed on discharge instructions, follow up and referral plans. 16:42 Patient left the ED. db Signatures: Dispatcher [employer] Graeme Osorio MD MD cha Benton, Danielle, RN RN Hodan Thompson Clarissa, RN RN cm10
[2024-06-04] MEDS ORDERED: NA CHLORIDE 0.9% 1,000 ML ONE (14:49)
--- NOTE | 2024-06-04 14:49 | EDPHYS ---
Physician Documentation [facility] Name: Maria Elena Carlin Age: 28 yrs Sex: Female : 1995 Arrival Date: 06/04/2024 Time: 12:46 Bed 18 Private MD: ED Physician Graeme Rojas HPI: 06/04 14:25 This 28 yrs old Female presents to ER via Ambulatory with complaints of mara Vaginal Bleeding, + Preg <12wks, Abdominal Pain. 14:25 The patient presents to the emergency department with vaginal bleeding, that is light. mara The estimated gestational age is 6 weeks. course: care: none. Previous pregnancies: in previous pregnancies patient has had vaginal delivery. Associated signs and symptoms: The patient has no apparent associated signs or symptoms. The patient has not experienced similar symptoms in the past. 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 - Infectious Disease History:: Denies. - Social history:: Smoking status: Patient denies any tobacco usage or history of. ROS: 14:26 Positive for injury or acute deformity, urinary symptoms, pelvic pain, vaginal mara bleeding, 14:26 Constitutional: Negative for fever, chills, and weight loss, Eyes: Negative for injury, pain, redness, and discharge, ENT: Negative for injury, pain, and discharge, Neck: Negative for injury, pain, and swelling, Cardiovascular: Negative for chest pain, palpitations, and edema, Respiratory: Negative for shortness of breath, cough, wheezing, and pleuritic chest pain, Abdomen/GI: Negative for abdominal pain, nausea, vomiting, diarrhea, and constipation, Back: Negative for injury and pain, MS/Extremity: Negative for injury and deformity, Skin: Negative for injury, rash, and discoloration, Neuro: Negative for headache, weakness, numbness, tingling, and seizure, Psych: Negative for depression, anxiety, suicide ideation, homicidal ideation, and hallucinations, Allergy/Immunology: Negative for hives, rash, and allergies, Endocrine: Negative for neck swelling, polydipsia, polyuria, polyphagia, and marked weight changes, Hematologic/Lymphatic: Negative for swollen nodes, abnormal bleeding, and unusual bruising, 14:26 : Positive for vaginal bleeding, Exam: 14:26 Constitutional: This is a well developed, well nourished patient who is awake, alert, mara and in no acute distress. Head/Face: Normocephalic, atraumatic. Eyes: Pupils equal round and reactive to light, extra-ocular motions intact. Lids and lashes normal. Conjunctiva and sclera are non-icteric and not injected. Cornea within normal limits. Periorbital areas with no swelling, redness, or edema. ENT: Nares patent. No nasal discharge, no septal abnormalities noted. Tympanic membranes are normal and external auditory canals are clear. Oropharynx with no redness, swelling, or masses, exudates, or evidence of obstruction, uvula midline. Mucous membranes moist. Neck: Trachea midline, no thyromegaly or masses palpated, and no cervical lymphadenopathy. Supple, full range of motion without nuchal rigidity, or vertebral point tenderness. No Meningismus. Chest/axilla: Normal chest wall appearance and motion. Nontender with no deformity. No lesions are appreciated. Cardiovascular: Regular rate and rhythm with a normal S1 and S2. No gallops, murmurs, or rubs. Normal PMI, no JVD. No pulse deficits. Respiratory: Lungs have equal breath sounds bilaterally, clear to auscultation and percussion. No rales, rhonchi or wheezes noted. No increased work of breathing, no retractions or nasal flaring. Abdomen/GI: Soft, non-tender, with normal bowel sounds. No distension or tympany. No guarding or rebound. No evidence of tenderness throughout. Back: No spinal tenderness. No costovertebral tenderness. Full range of motion. Skin: Warm, dry with normal turgor. Normal color with no rashes, no lesions, and no evidence of cellulitis. MS/ Extremity: Pulses equal, no cyanosis. Neurovascular intact. Full, normal range of motion. Neuro: Awake and alert, GCS 15, oriented to person, place, time, and situation. Cranial nerves II-XII grossly intact. Motor strength 5/5 in all extremities. Sensory grossly intact. Cerebellar exam normal. Normal gait. Psych: Awake, alert, with orientation to person, place and time. Behavior, mood, and affect are within normal limits. Vital Signs: 13:05 BP 119 / 75; Pulse 70; Resp 18; Temp 98.4(O); Pulse Ox 100% on R/A; Weight 53.52 kg; cm10 Height 5 ft. 2 in. ; Pain 7/10; 15:00 BP 105 / 71; Pulse 62; Resp 16; Pulse Ox 100% on R/A; db 16:00 BP 109 / 95; Pulse 72; Resp 16; Pulse Ox 100% on R/A; db 13:05 Body Mass Index 21.58 (53.52 kg, 157.48 cm) cm10 13:05 Pain Scale: Adult cm10 MDM: 12:54 Medical Screening Exam initiated mara 14:28 Differential diagnosis: ruptured ectopic , urinary tract infection. Data [facility] reviewed: vital signs, nurses notes, lab test result(s), radiologic studies, ultrasound. Consideration of Admission/Observation Escalation of care including admission/observation considered. I considered the following discharge prescriptions or medication management in the emergency department Medications were administered in the Emergency Department. See MAR. Independent interpretation of the following test(s) in the Emergency Department Radiology Department Ultrasound: My interpretation is vag probe. Test considered but Not performed: CT: no ct abd/pel. Historians other than the Patient: Spouse/Significant Other: so in room . well informed. Care significantly affected by the following chronic conditions: none. 06/04 12:55 Order name: Abo/rh Typing [facility] 06/04 12:55 Order name: Basic Metabolic Panel; Complete Time: 14:46 [facility] 06/04 12:55 Order name: CBC with Diff; Complete Time: 14:31 [facility] 06/04 12:55 Order name: Quantitative Hcg; Complete Time: 14:46 [facility] 06/04 12:55 Order name: Urinalysis w/ reflexes; Complete Time: 14:31 [facility] 06/04 15:23 Order name: Rhogam [facility] 06/04 15:25 Order name: Cord blood workup [facility] 06/04 15:25 Order name: Antibody Screen [facility] 06/04 15:25 Order name: Fetalscreen [facility] 06/04 12:55 Order name: US Transvaginal Ob; Complete Time: 14:18 [facility] 06/04 12:55 Order name: IV Saline Lock; Complete Time: 14:11 [facility] 06/04 12:55 Order name: Labs collected and sent; Complete Time: 14:11 [facility] 06/04 12:55 Order name: NPO; Complete Time: 14:11 [facility] Administered Medications: 14:00 Drug: NS 0.9% IV 1000 ml IV at 1000 ml once; to be given as a bolus over 60 minutes db Route: IV; Rate: 1000 ml; Site: right antecubital; 16:32 Follow up: Response: No adverse reaction; IV Status: Completed infusion; IV Intake: db 1000ml 16:00 Drug: Rho D Immune Globulin IM 300 mcg IM once Route: IM; Site: right ventrogluteal; db 16:32 Follow up: Response: No adverse reaction db Disposition Summary: 06/04/24 14:47 Discharge Ordered Notes: Location: Home mara Problem: new mara Symptoms: have improved mara Condition: Stable mara Diagnosis - Threatened mara Followup: mara - With: Private Physician - When: 2 - 3 days - Reason: Recheck today's complaints, Continuance of care, Re-evaluation by your physician Discharge Instructions: - Discharge Summary Sheet mara - Care mara - Threatened Miscarriage mara - Threatened Miscarriage, [id number] mara - Vaginal Bleeding During , First Trimester, [id number] mara Forms: - Medication Reconciliation Form mara - Antibiotic Education mara - Prescription Opioid Use mara - Patient Portal Instructions mara - Leadership Thank You Letter mara - Work release form db Signatures: Dispatcher [employer] Graeme Osorio MD MD cha Benton, Danielle, RN RN Shelly Herrmann, RN RN cm10 Corrections: (The following items were deleted from the chart) 12:55 12:55 Transvaginal Ob+US.RAD.BRZ ordered. EDMS EDMS 15:25 14:48 RHOGAM+BB.LAB.BRZ ordered. EDMS EDMS 15:25 14:50 Rh Typing ordered. EDMS EDMS 15:25 14:50 Antibody Screen ordered. EDMS EDMS 15:25 14:50 Fetalscreen ordered. EDMS EDMS 15:25 14:50 Cord Rh type ordered. EDMS EDMS
[2024-06-04 20:49] VITALS: TEMP 98.4; O2SAT 100
[2024-06-04 20:56] VITALS: BP 109/95
== END 2024-06-04 16:42 | disposition home or self-care (01) ==
LOC: ER 12:46
DX: O20.0 Threatened abortion (principal); Z3A.01 Less than 8 weeks gestation of pregnancy
CPT/HCPCS: 36415; 76817; 80048; 81001; 84702; 85025; 86850; 86880; 86900; 86901; 96360; 96361; 96372; 99284; J2790; J7030